=== PATIENT | female | born 1960 | race Hispanic/Latino ===

== ENCOUNTER 2019-06-29 12:52 | Emergency (ER) | payer MEDICARE ==
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
[2019-06-29] MEDS ORDERED: HALOPERIDOL LACTATE 5 MG/1 ML INJ IM ONE (13:13)
[2019-06-29 14:02] LABS: Basophils # (Auto) 0.1 K/mm3 (0.0-0.1); Basophils % (Auto) 1.1 % (0.0-1.8); Eosinophils # (Auto) 0.1 K/mm3 (0.0-0.4); Eosinophils % (Auto) 1.3 % (0.0-4.3); Hematocrit 43.7 % (30.3-42.9); Hemoglobin 14.4 gm/dl (10.1-14.3); Lymphocytes # (Auto) 1.8 K/mm3 (1.2-5.4); Lymphocytes % (Auto) 22.9 % (13.4-35.0); Mean Corpuscular HGB Conc 33 % (30-34); Mean Corpuscular Volume 92 fl (79-97); Monocytes # (Auto) 0.4 K/mm3 (0.0-0.8); Monocytes % (Auto) 5.5 % (0.0-7.3); Platelet Count 241 K/mm3 (140-440); Red Blood Count 4.76 M/mm3 (3.65-5.03); Red Cell Distribution Width 13.3 % (13.2-15.2)
[2019-06-29 14:15] LABS: Alanine Aminotransferase 20 units/L (7-56); Albumin 4.3 g/dL (3.9-5); BUN/Creatinine Ratio 26; Blood Urea Nitrogen 13 mg/dL (7-17); Calcium 9.2 mg/dL (8.4-10.2); Hemolysis Index 32
[2019-06-29 16:29] LABS: Amphetamine Screen,Urine PRESUMPTIVE NEGATIVE; Benzodiazepines Screen,Urine PRESUMPTIVE NEGATIVE; Cannabinoid Screen,Urine PRESUMPTIVE NEGATIVE; Cocaine Screen,Urine PRESUMPTIVE NEGATIVE; Methadone Screen,Urine PRESUMPTIVE NEGATIVE; Opiate Screen,Urine PRESUMPTIVE NEGATIVE
[2019-06-29 18:03] LABS: Bilirubin,Urine NEG (Negative); Blood,Urine NEG (Negative); Calcium Oxalate Crystals,Urine 3+; Color,Urine Yellow (Yellow); Mucus,Urine 2+ /HPF; Protein,Urine <15 mg/dL mg/dL (Negative); Urobilinogen,Urine < 2.0 mg/dL (<2.0)
--- NOTE | 2019-06-30 03:46 | Event Note ---
Nurses alerted be to the patient complaining of dysuria. Patient's urinalysis was reviewed and shows that she does have probable UTI. Patient was started on Macrobid.
[2019-06-30] MEDS: NITROFURANTOIN MONOHYD/M-CRYST 100 MG CAP PO SCH ×2 (04:45→11:52)
--- NOTE | 2019-06-30 11:16 | Consultation ---
History of Present Illness - Reason for Consult Consult date: 06/30/19 Reason for consult: Mental Health Evaluation Requesting physician: GIULIANA MORALES - Chief Complaint Chief complaint: "I'm here for constipation" - History of Present Psychiatric Illness 59 y.o. white female who presented to the ER for acute psychosis. Today the patient was hyper verbal during the assessment. She stated that she came to the ER for constipation, but cannot explain logically how she became a 1013 patient when asked. Her answers to all questions were nonsensical. She has delusional thoughts about having a blood disorder. She stated that she have not slept in days, and do not need sleep at this time. She stated that she was recently discharged from a mental health facility. Overall, the patient's insight was poor. She denies SI/HI's and AVH's. Medications and Allergies Allergies Allergy/AdvReac Type Severity Reaction Status Date / Time amoxicillin Allergy Unknown Verified 06/29/19 17:23 azithromycin [From Zithromax] Allergy Unknown Verified 06/29/19 17:23 clonazepam [From Klonopin] Allergy Unknown Verified 06/29/19 17:23 codeine Allergy Unknown Verified 06/29/19 17:23 morphine Allergy Unknown Verified 06/29/19 17:23 Penicillins Allergy Anaphylaxis Verified 06/29/19 17:23 risperidone [From Risperdal] Allergy Unknown Verified 06/29/19 17:23 Active Meds: Active Medications Nitrofurantoin Macrocrystals (Macrobid) 100 mg PO BID [facility] Last Admin: 06/30/19 04:45 Dose: 100 mg Documented by: Past psychiatric history - Past Medical History Past Medical History: other (Unable to obtain ) Past Surgical History: Other (Unable to obtain ) - past Psychiatric treatment and history psychiatric treatment history: Inpatient psy settings in the past. Denies a fam psy hx. - Social History Social history: other (Reside at a prison) Mental Status Exam - Vital signs Last Vital Signs Temp 97.8 F 06/30/19 01:05 Pulse 74 06/30/19 01:05 Resp 16 06/30/19 01:05 BP 148/79 06/30/19 01:05 Pulse Ox 98 06/30/19 01:05 - Exam Narrative exam: MSE: Appearance: calm Behavior: regular eye contact Speech: hyper verbal Mood:: euphoric Affect: congruent to mood Thought Process: loose associations, tangential Thought Content: denies SI/HI's and AVH's, delusional Motor Activity: ambulatory Cognition: A/O x3 Insight: poor Judgment: poor Results Result Diagrams: 06/29/19 13:18 06/29/19 13:18 Abnormal lab results 06/29/19 06/29/19 06/29/19 Range/Units 13:18 13:18 13:18 Hgb 14.4 H (10.1-14.3) gm/dl Hct 43.7 H (30.3-42.9) % Carbon Dioxide 21 L (22-30) mmol/L Creatinine 0.5 L (0.7-1.2) mg/dL Glucose 141 H (65-100) mg/dL Urine WBC (Auto) (0.0-6.0) /HPF U Epithel Cells (Auto) (0-13.0) /HPF Salicylates < 0.3 L (2.8-20.0) mg/dL Acetaminophen (10.0-30.0) ug/mL 06/29/19 06/29/19 Range/Units 13:18 Unknown Hgb (10.1-14.3) gm/dl Hct (30.3-42.9) % Carbon Dioxide (22-30) mmol/L Creatinine (0.7-1.2) mg/dL Glucose (65-100) mg/dL Urine WBC (Auto) 14.0 H (0.0-6.0) /HPF U Epithel Cells (Auto) 18.0 H (0-13.0) /HPF Salicylates (2.8-20.0) mg/dL Acetaminophen < 5.0 L (10.0-30.0) ug/mL All other labs normal. Assessment and Plan Assessment and plan: Impression: Unspecified Mood DO with psy features. The patient is manic. Today the patient was hyper verbal during the assessment. DDx: Bipolar DO with psychosis, Schizophrenia Recommendation/Plan: Continue 1013 and start Zyprexa 5 mg PO HS for mood/p sychosis and Depakote 500 mg PO BID for mood. Attempted to discuss possible metabolic side effects from Zyprexa with the patient. Baseline A1c/Lipid Panel ordered for the AM. Dispo: The patient was referred to inpatient psy services. Will staff with Dr Maria Alejandra Cespedes.
[2019-06-30 16:51] VITALS: BP 136/68
[2019-06-30] MEDS ORDERED: DIVALPROEX ER 500 MG TAB PO SCH (22:00)
== END 2019-06-30 16:51 | disposition home or self-care (01) ==
LOC: EEVIPCON 12:52 → ED 12:52
DX: F23 Brief psychotic disorder (principal); F17.200 Nicotine dependence, unspecified, uncomplicated; Z88.1 Allergy status to other antibiotic agents; Z88.5 Allergy status to narcotic agent; Z88.0 Allergy status to penicillin; Z88.8 Allergy status to other drugs, medicaments and biological substances
CPT/HCPCS: 36415; 80053; 80164; 80307; 81001; 82150; 82962; 83690; 84443; 84703; 85025; 87086; 96372; 99284; J1630; 80320; G0480

== ENCOUNTER 2019-06-30 12:53 | Inpatient (IN) | payer MEDICARE ==
[2019-06-30 19:28] LABS: Chol/HDL Ratio 5.3 %
[2019-06-30] MEDS: LORazepam 0.5 MG TAB PO SCH (22:04)
[2019-06-30] MEDS: carBAMazepine 100 MG TAB CHEW PO SCH (22:04)
[2019-07-01] MEDS: LEVOTHYROXINE 100 MCG TAB PO SCH (05:04)
[2019-07-01] MEDS: carBAMazepine 100 MG TAB CHEW PO SCH ×3 (07:42→21:13)
--- NOTE | 2019-07-01 08:32 | History and Physical Report ---
GP History & Physical - History of Present Illness Date of admission: 06/30/19 Date of Examination: 07/01/19 Reason for Admission: Failure of Outpatient Treatment, Psychopathology interference, Unable to care for self Chief Complaint: I called 911 because my bowel was turning green History of Present Illness: The patient is a 59 y.o. disabled female with history of PTSD, Bipolar disorder and multiple medical problems including DM, HTN and hypothyroidism. She presented to our ER manic, psychotic, confused, disorganized and delusional. Per ER documentation, the patient was hyper verbal during the assessment. She stated that she came to the ER for constipation, but cannot explain logically how she became a 1013 patient when asked. Her answers to all questions were nonsensical. She has delusional thoughts about having a blood disorder. She stated that she have not slept in days, and do not need sleep at this time. She stated that she was recently discharged from a mental health facility. Overall, the patient's insight was poor. She denies SI/HI's and AVH's. In my interview with the patient, this morning, she states that she called 911 because her bowel was turning green and her thyroid was swelling up. She denies hallucinations but endorses feeling paranoid. She reports that people are spying on her, following her and plotting to harm her. She denies SI/HI. Legal Status: Voluntary Patient Problems: Current Active Problems PTSD (post-traumatic stress disorder) (Acute) Schizoaffective disorder, bipolar type (Acute) Reaction to Hospitalization: Accepting Medications and Allergies Allergies Allergy/AdvReac Type Severity Reaction Status Date / Time amoxicillin Allergy Unknown Verified 06/29/19 17:23 azithromycin [From Zithromax] Allergy Unknown Verified 06/29/19 17:23 clonazepam [From Klonopin] Allergy Unknown Verified 06/29/19 17:23 codeine Allergy Unknown Verified 06/29/19 17:23 morphine Allergy Unknown Verified 06/29/19 17:23 Penicillins Allergy Anaphylaxis Verified 06/29/19 17:23 risperidone [From Risperdal] Allergy Unknown Verified 06/29/19 17:23 Home Medications Medication Instructions Recorded Confirmed Last Taken Type Levothyroxine [Synthroid] 100 mcg PO QAM 06/30/19 06/30/19 Unknown History Metoprolol Mauro/Hydrochlorothiaz 1 each PO DAILY 06/30/19 07/01/19 Unknown History [Metoprolol ER-Hctz 25-12.5 mg] Insulin Aspart [NovoLOG Flexpen] See Protocol SUB-Q ACHS 07/01/19 07/01/19 Unknown History LORazepam [Ativan] 0.5 mg PO BID 07/01/19 07/01/19 Unknown History Potassium Chloride [K-Dur] 20 meq PO QDAY 07/01/19 07/01/19 Unknown History carBAMazepine [Carbamazepine] 100 mg PO TID 07/01/19 07/01/19 Unknown History Active Meds: Active Medications Carbamazepine (Tegretol) 100 mg PO TID [facility] Last Admin: 07/01/19 07:42 Dose: 100 mg Documented by: Levothyroxine Sodium (Synthroid) 100 mcg PO DAILY@0600 [facility] Last Admin: 07/01/19 05:04 Dose: 100 mcg Documented by: Lorazepam (Ativan) 0.5 mg PO QHS [facility] Last Admin: 06/30/19 22:04 Dose: 0.5 mg Documented by: Substance History - Substance History Drug Use: none Hx Tobacco Use: Yes Alcohol Use: No Past psychiatric history - Past Medical History Past Medical History: diabetes, hypertension, hypothyroidism - past Psychiatric treatment and history Psych: Bipolar psychiatric treatment history: She reports multiple inpatient psych treatments No history of suicide attempt She follows up with Dr. Jauregui in out-patient. In the past she found Seroquel beneficial - Social History Social history: (disabled, lives in a Transitional accommodation, has Master's degree, no legal problem and no access to guns) Review of Systems All systems: negative Psychiatric: paranoia Results - Results Labs/Vitals: Laboratory Last Values Hemoglobin A1c 6.9 % (4-6) H 06/30/19 19:00 Triglycerides 276 mg/dL (2-149) H 06/30/19 19:00 Cholesterol 228 mg/dL (50-199) H 06/30/19 19:00 LDL Cholesterol Direct 170 mg/dL (50-130) H 06/30/19 19:00 HDL Cholesterol 43 mg/dL (40-59) 06/30/19 19:00 Cholesterol/HDL Ratio 5.30 % 06/30/19 19:00 Last Vital Signs Temp 98.4 F 06/30/19 22:00 Pulse 75 06/30/19 22:00 Resp 20 06/30/19 22:00 BP 142/70 06/30/19 22:00 Pulse Ox 94 06/30/19 22:00 Physical Examination - Constitutional Vitals: Vital Signs Temp Pulse Resp BP Pulse Ox 98.4 F 75 20 142/70 94 06/30/19 22:00 06/30/19 22:00 06/30/19 22:00 06/30/19 22:00 06/30/19 22:00 Temperature -Last 24 Hours Temperature 98.4 F General appearance: Present: no acute distress, well-nourished - EENT Eyes: Present: PERRL, EOM intact ENT: hearing intact, clear oral mucosa - Neck Neck: Present: supple, normal ROM - Respiratory Respiratory effort: normal Mental Status Exam - Vital signs Last Vital Signs Temp 98.4 F 06/30/19 22:00 Pulse 75 06/30/19 22:00 Resp 20 06/30/19 22:00 BP 142/70 06/30/19 22:00 Pulse Ox 94 06/30/19 22:00 - Exam Orientation: time, place, person Affect: anxious Mood: anxious Thought content: delusions, paranoia Thought Process: Disorganized Perceptions: none Speech: normal rate and pattern Concentration: distractible Motor activity: normal Level of consciousness: alert Memory: Intact Interaction: cooperative Assessment and Plan - Psychiatric problem (1) Schizoaffective disorder, bipolar type Current Visit: Yes Status: Acute plan to address problem: Patient will be admitted for inpatient psychiatric evaluation, medication adjustment and close monitoring The patient's behavior, mood, sleep and appetite will be closely monitored. Patient will be enrolled in individual and group therapeutic sessions and encouraged to attend. Patient will be provided with a safe and structured environment. Patient's physical health needs will be addressed by the Hospitalist. Social Assessment will be completed and the Acoustical Engineer will work with p atient and family to ensure a suitable and safe disposition Medication adjustment will be made as clinically indicated The patient agreed on the treatment plan, understood the risk, benefit, alterna tive treatment, potential consequence of no treatment, and gave informed consent. (2) PTSD (post-traumatic stress disorder) Current Visit: Yes Status: Acute Physician Certification - Certification Statement Physician Certification Statement: This is an acknowledgement statement that NOAH TRAN is a 59 year old F who requires inpatient psychiatric admission for treatment which could reasonably be expected to improve the patient's condition for Schizoaffective disorder Estimated period of time patient will need to remain in the hospital: Out - patient care Plan for post-hospital care: 7 days
[2019-07-01] MEDS: QUEtiapine 200 MG TAB PO SCH ×2 (09:53→21:14)
[2019-07-01] MEDS: NICOTINE 21 MG/24 HR PATCH TD SCH (11:15)
--- NOTE | 2019-07-01 12:52 | Consultation ---
History of Present Illness - Reason for Consult Consult date: 07/01/19 Diabetes, hypertension, hyperlipidemia Requesting physician: ASTER MURDOCK - History of Present Illness Patient is 59 yo admitted to Geripsych unit for schizoaffective disorder, bipolar, PTSD. The hospitalist service has been consulted to manage comorbidities including hypertension, diabetes, hyperlipidemia,hypothyroidism. She takes Insulin for diabetes and has been compliant. She denies any chest pain or shortness of breath. Past History Past Medical History: diabetes, hypertension, hypothyroidism Past Surgical History: , Other (Right knee surgery) Social history: (disabled, lives in a Transitional accommodation, has Master's degree, no legal problem and no access to guns) Family history: other (Unknown) Medications and Allergies Allergies Allergy/AdvReac Type Severity Reaction Status Date / Time amoxicillin Allergy Unknown Verified 06/29/19 17:23 azithromycin [From Zithromax] Allergy Unknown Verified 06/29/19 17:23 clonazepam [From Klonopin] Allergy Unknown Verified 06/29/19 17:23 codeine Allergy Unknown Verified 06/29/19 17:23 morphine Allergy Unknown Verified 06/29/19 17:23 Penicillins Allergy Anaphylaxis Verified 06/29/19 17:23 risperidone [From Risperdal] Allergy Unknown Verified 06/29/19 17:23 Home Medications Medication Instructions Recorded Confirmed Last Taken Type Levothyroxine [Synthroid] 100 mcg PO QAM 06/30/19 06/30/19 Unknown History Metoprolol Mauro/Hydrochlorothiaz 1 each PO DAILY 06/30/19 07/01/19 Unknown History [Metoprolol ER-Hctz 25-12.5 mg] Insulin Aspart (Nf) [NovoLOG See Protocol SUB-Q ACHS 07/01/19 07/01/19 Unknown History Flexpen] LORazepam [Ativan] 0.5 mg PO BID 07/01/19 07/01/19 Unknown History Potassium Chloride [K-Dur] 20 meq PO QDAY 07/01/19 07/01/19 Unknown History carBAMazepine [Carbamazepine] 100 mg PO TID 07/01/19 07/01/19 Unknown History Active Meds: Active Medications Atorvastatin Calcium (Lipitor) 40 mg PO QHS [facility] Carbamazepine (Tegretol) 200 mg PO TID [facility] Levothyroxine Sodium (Synthroid) 100 mcg PO DAILY@0600 [facility] Last Admin: 07/01/19 05:04 Dose: 100 mcg Documented by: Lorazepam (Ativan) 0.5 mg PO QHS [facility] Last Admin: 06/30/19 22:04 Dose: 0.5 mg Documented by: Nicotine (Habitrol) 21 mg TD QDAY [facility] Last Admin: 07/01/19 11:15 Dose: 21 mg Documented by: Quetiapine Fumarate (Seroquel) 200 mg PO BID [facility] Last Admin: 07/01/19 09:53 Dose: 200 mg Documented by: Review of Systems All systems: negative (No fever, no headache, no chest pain.All other systems reviewed and are negative.) Exam - Physical Exam Narrative exam: Gen: Not in acute distress, sitting up in chair, Obese HEENT: Normocephalic, atraumatic Neck: supple, no JVD Heart: S1 and S2 reg, no murmurs, rubs or gallop Lungs: Clear to auscultation, no rhonchi, no wheeze Abd: soft, non tender, normal bowel sounds, non distended, Ext: No edema, no clubbing, no cyanosis Neuro: Awake, alert, oriented X 3, no focal neurological signs - Constitutional Vitals: Temp Pulse Resp BP Pulse Ox 98.4 F 75 20 142/70 94 06/30/19 22:00 06/30/19 22:00 06/30/19 22:00 06/30/19 22:00 06/30/19 22:00 Results - Labs Labs: Abnormal lab results 06/30/19 06/30/19 07/01/19 Range/Units 19:00 19:00 12:42 POC Glucose 125 H (70-105) Hemoglobin A1c 6.9 H (4-6) % Triglycerides 276 H (2-149) mg/dL Cholesterol 228 H (50-199) mg/dL LDL Cholesterol Direct 170 H (50-130) mg/dL Assessment and Plan Schizoaffective disorder, bipolar Admitted to [facility] Psych attending PTSD Psych following Diabetes mellitus type 2 Accucheck q ac hs sliding scale only since A1C 6.9 Hypertension Monitor BP Resume home meds Hyperlipidemia New diagnosis Start statin Hypothyroidism Resume meds check TSH, FT4 Full code status Thanks Dr. Murdock for consulting us. Will follow peripherally.
[2019-07-01] MEDS ORDERED: HYDROCHLOROTHIAZ PO SCH (15:15)
[2019-07-01] MEDS ORDERED: METOPROLOL SU PO SCH (15:15)
[2019-07-01] MEDS ORDERED: [UNRECOGNIZED DRUG - OTHER] PO SCH (15:15)
[2019-07-01] MEDS: METOPROLOL SUCCINATE XL 25 MG TAB PO SCH (16:18)
[2019-07-01] MEDS: hydroCHLOROthiazide 12.5 MG CAP PO SCH (16:18)
[2019-07-01] MEDS ORDERED: DEXTROSE 50% IN WATER (25GM) 50 ML SYRINGE IV PRN (16:29)
[2019-07-01] MEDS: INSULIN LISPRO 100 UNIT/ML SUB-Q SCH ×2 (16:51→22:29)
[2019-07-01] MEDS: LORazepam 0.5 MG TAB PO SCH (21:14)
[2019-07-02] MEDS: LEVOTHYROXINE 100 MCG TAB PO SCH (07:41)
[2019-07-02] MEDS: carBAMazepine 100 MG TAB CHEW PO SCH ×3 (07:42→20:53)
[2019-07-02] MEDS: INSULIN LISPRO 100 UNIT/ML SUB-Q SCH ×2 (09:52→21:46)
[2019-07-02] MEDS: NICOTINE 21 MG/24 HR PATCH TD SCH (09:53)
[2019-07-02] MEDS: hydroCHLOROthiazide 12.5 MG CAP PO SCH (09:54)
[2019-07-02] MEDS: METOPROLOL SUCCINATE XL 25 MG TAB PO SCH (09:55)
[2019-07-02] MEDS: QUEtiapine 200 MG TAB PO SCH ×2 (09:56→21:01)
--- NOTE | 2019-07-02 11:38 | Progress Note ---
Subjective Date of service: 07/02/19 Principal diagnosis: Schizoaffective disorder, PTSD Subjective Comment: Patient continues to be delusional, disorganized, very anxious and not compliant with her treatment. She denies SI/HI/AVH. MSE Orientation: time, place, person Affect: anxious Mood: anxious Thought content: delusions, paranoia Thought Process: Disorganized Perceptions: none Speech: normal rate and pattern Concentration: distractible Motor activity: normal Level of consciousness: alert Memory: Intact Interaction: cooperative Objective - Criteria for Continued Treatment Criteria for Continued Treatment: Improving Level of Functioning, Stablizing Level of Functioning, Improving Emotional/Socia - Mental Status Mental Status: Alert - Objective Observation Participation Level: Full Assessment and Plan - Patient Problems (1) Schizoaffective disorder, bipolar type Current Visit: Yes Status: Acute Plan to address problem: Patient will be admitted for inpatient psychiatric evaluation, medication adjustment and close monitoring The patient's behavior, mood, sleep and appetite will be closely monitored. Patient will be enrolled in individual and group therapeutic sessions and encouraged to attend. Patient will be provided with a safe and structured environment. Patient's physical health needs will be addressed by the Hospitalist. Social Assessment will be completed and the Certifed Refrigeration Operator will work with patient and family to ensure a suitable and safe disposition Medication adjustment will be made as clinically indicated The patient agreed on the treatment plan, understood the risk, benefit, alternative treatment, potential consequence of no treatment, and gave informed consent. (2) PTSD (post-traumatic stress disorder) Current Visit: Yes Status: Acute Plan to address problem: As above Medications and Allergies Allergies Allergy/AdvReac Type Severity Reaction Status Date / Time amoxicillin Allergy Unknown Verified 06/29/19 17:23 azithromycin [From Zithromax] Allergy Unknown Verified 06/29/19 17:23 clonazepam [From Klonopin] Allergy Unknown Verified 06/29/19 17:23 codeine Allergy Unknown Verified 06/29/19 17:23 morphine Allergy Unknown Verified 06/29/19 17:23 Penicillins Allergy Anaphylaxis Verified 06/29/19 17:23 risperidone [From Risperdal] Allergy Unknown Verified 06/29/19 17:23 Home Medications Medication Instructions Recorded Confirmed Last Taken Type Levothyroxine [Synthroid] 100 mcg PO QAM 06/30/19 06/30/19 Unknown History Metoprolol Mauro/Hydrochlorothiaz 1 each PO DAILY 06/30/19 07/01/19 Unknown History [Metoprolol ER-Hctz 25-12.5 mg] Insulin Aspart (Nf) [NovoLOG See Protocol SUB-Q [facility] 07/01/19 07/01/19 Unknown History Flexpen] LORazepam [Ativan] 0.5 mg PO BID 07/01/19 07/01/19 Unknown History Potassium Chloride [K-Dur] 20 meq PO QDAY 07/01/19 07/01/19 Unknown History carBAMazepine [Carbamazepine] 100 mg PO TID 07/01/19 07/01/19 Unknown History Active Meds: Active Medications Atorvastatin Calcium (Lipitor) 40 mg PO QHS [facility] Last Admin: 07/01/19 21:14 Dose: 40 mg Documented by: Carbamazepine (Tegretol) 200 mg PO TID [facility] Last Admin: 07/02/19 07:42 Dose: 100 mg Documented by: Dextrose (D50w (25gm) Syringe) 50 ml IV Q30MIN PRN; Protocol PRN Reason: Hypoglycemia Hydrochlorothiazide (Hctz) 12.5 mg PO QDAY [facility] Last Admin: 07/02/19 09:54 Dose: 12.5 mg Documented by: Insulin Human Lispro (Humalog) 0 unit SUB-Q [facility]; Protocol Last Admin: 07/02/19 09:52 Dose: 1 unit Documented by: Insulin Human [facility] ([facility]) [facility]; Protocol Last Admin: 07/01/19 22:29 Dose: 2 unit Documented by: Levothyroxine Sodium (Synthroid) 100 mcg PO DAILY@0600 [facility] Last Admin: 07/02/19 07:41 Dose: 100 mcg Documented by: Lorazepam (Ativan) 0.5 mg PO QHS [facility] Last Admin: 07/01/19 21:14 Dose: 0.5 mg Documented by: Metoprolol Succinate (Metoprolol Xl) 25 mg PO QDAY [facility] Last Admin: 07/02/19 09:55 Dose: 25 mg Documented by: Nicotine (Habitrol) 21 mg TD QDAY [facility] Last Admin: 07/02/19 09:53 Dose: 21 mg Documented by: Quetiapine Fumarate (Seroquel) 200 mg PO BID [facility] Last Admin: 07/02/19 09:56 Dose: Not Given Documented by: Results - Results Labs/Vitals: Laboratory Last Values POC Glucose 164 (70-105) H 11/08/19 16:31 Hemoglobin A1c 6.9 % (4-6) H 06/30/19 19:00 Triglycerides 276 mg/dL (2-149) H 06/30/19 19:00 Cholesterol 228 mg/dL (50-199) H 06/30/19 19:00 LDL Cholesterol Direct 170 mg/dL (50-130) H 06/30/19 19:00 HDL Cholesterol 43 mg/dL (40-59) 06/30/19 19:00 Cholesterol/HDL Ratio 5.30 % 06/30/19 19:00 Last Vital Signs Temp 97.5 F L 07/02/19 09:00 Pulse 88 07/02/19 09:55 Resp 16 07/02/19 09:00 BP 158/88 07/02/19 09:55 Pulse Ox 95 07/02/19 09:00
[2019-07-02] MEDS: LORazepam 0.5 MG TAB PO SCH (21:00)
[2019-07-03] MEDS: LEVOTHYROXINE 100 MCG TAB PO SCH (06:24)
--- NOTE | 2019-07-03 08:00 | Progress Note ---
Subjective Date of service: 07/03/19 Principal diagnosis: Schizoaffective disorder, PTSD Subjective Comment: Patient continues to be delusional, disorganized, very anxious and not compliant with her treatment. She denies SI/HI/AVH. Nursing Report: Pt. delusional, talking about how late Hugo celeste was her uncle, the is her aunt and how she is related to queen Jeremiah. Pt. is easily irritable and likes to fabricate stories. MSE Orientation: time, place, person Affect: anxious Mood: anxious Thought content: delusions, paranoia Thought Process: Disorganized Perceptions: none Speech: normal rate and pattern Concentration: distractible Motor activity: normal Level of consciousness: alert Memory: Intact Interaction: cooperative Objective - Criteria for Continued Treatment Criteria for Continued Treatment: Improving Level of Functioning - Mental Status Mental Status: Alert - Objective Observation Participation Level: Full Assessment and Plan - Patient Problems (1) Schizoaffective disorder, bipolar type Current Visit: Yes Status: Acute Plan to address problem: Patient will be admitted for inpatient psychiatric evaluation, medication adjustment and close monitoring The patient's behavior, mood, sleep and appetite will be closely monitored. Patient will be enrolled in individual and group therapeutic sessions and encouraged to attend. Patient will be provided with a safe and structured environment. Patient's physical health needs will be addressed by the Hospitalist. Social Assessment will be completed and the Telephone Operator will work with patient and family to ensure a suitable and safe disposition Medication adjustment will be made as clinically indicated The patient agreed on the treatment plan, understood the risk, benefit, alternative treatment, potential consequence of no treatment, and gave informed consent. (2) PTSD (post-traumatic stress disorder) Current Visit: Yes Status: Acute Plan to address problem: As above Medications and Allergies Allergies Allergy/AdvReac Type Severity Reaction Status Date / Time amoxicillin Allergy Unknown Verified 06/29/19 17:23 azithromycin [From Zithromax] Allergy Unknown Verified 06/29/19 17:23 clonazepam [From Klonopin] Allergy Unknown Verified 06/29/19 17:23 codeine Allergy Unknown Verified 06/29/19 17:23 morphine Allergy Unknown Verified 06/29/19 17:23 Penicillins Allergy Anaphylaxis Verified 06/29/19 17:23 risperidone [From Risperdal] Allergy Unknown Verified 06/29/19 17:23 Home Medications Medication Instructions Recorded Confirmed Last Taken Type Levothyroxine [Synthroid] 100 mcg PO QAM 06/30/19 06/30/19 Unknown History Metoprolol Mauro/Hydrochlorothiaz 1 each PO DAILY 06/30/19 07/01/19 Unknown History [Metoprolol ER-Hctz 25-12.5 mg] Insulin Aspart (Nf) [NovoLOG See Protocol SUB-Q ACHS 07/01/19 07/01/19 Unknown History Flexpen] LORazepam [Ativan] 0.5 mg PO BID 07/01/19 07/01/19 Unknown History Potassium Chloride [K-Dur] 20 meq PO QDAY 07/01/19 07/01/19 Unknown History carBAMazepine [Carbamazepine] 100 mg PO TID 07/01/19 07/01/19 Unknown History Active Meds: Active Medications Atorvastatin Calcium (Lipitor) 40 mg PO QHS [facility] Last Admin: 07/02/19 21:00 Dose: 40 mg Documented by: Carbamazepine (Tegretol) 200 mg PO TID [facility] Last Admin: 07/02/19 20:53 Dose: 100 mg Documented by: Dextrose (D50w (25gm) Syringe) 50 ml IV Q30MIN PRN; Protocol PRN Reason: Hypoglycemia Hydrochlorothiazide (Hctz) 12.5 mg PO QDAY [facility] Last Admin: 07/02/19 09:54 Dose: 12.5 mg Documented by: Insulin Human Lispro (Humalog) 0 unit SUB-Q [facility]; Protocol Last Admin: 07/02/19 09:52 Dose: 1 unit Documented by: Insulin Human Lispro (Humalog) 0 unit [facility]Q [facility]; Protocol Last Admin: 07/02/19 21:46 Dose: 2 unit Documented by: Levothyroxine Sodium (Synthroid) 100 mcg PO DAILY@0600 [facility] Last Admin: 07/03/19 06:24 Dose: 100 mcg Documented by: Lorazepam (Ativan) 0.5 mg PO QHS [facility] Last Admin: 07/02/19 21:00 Dose: 0.5 mg Documented by: Metoprolol Succinate (Metoprolol Xl) 25 mg PO QDAY [facility] Last Admin: 07/02/19 09:55 Dose: 25 mg Documented by: Nicotine (Habitrol) 21 mg TD QDAY [facility] Last Admin: 07/02/19 09:53 Dose: 21 mg Documented by: Quetiapine Fumarate (Seroquel) 200 mg PO BID [facility] Last Admin: 07/02/19 21:01 Dose: Not Given Documented by: Results - Results Labs/Vitals: Laboratory Last Values POC Glucose 164 (70-105) H 07/01/19 16:31 Hemoglobin A1c 6.9 % (4-6) H 06/30/19 19:00 Triglycerides 276 mg/dL (2-149) H 06/30/19 19:00 Cholesterol 228 mg/dL (50-199) H 06/30/19 19:00 LDL Cholesterol Direct 170 mg/dL (50-130) H 06/30/19 19:00 HDL Cholesterol 43 mg/dL (40-59) 06/30/19 19:00 Cholesterol/HDL Ratio 5.30 % 06/30/19 19:00 Last Vital Signs Temp 98.5 F 07/02/19 20:17 Pulse 78 07/02/19 20:17 Resp 18 07/02/19 20:17 BP 182/89 07/02/19 20:17 Pulse Ox 97 07/02/19 20:17
[2019-07-03] MEDS: NICOTINE 21 MG/24 HR PATCH TD SCH (10:12)
[2019-07-03] MEDS: hydroCHLOROthiazide 12.5 MG CAP PO SCH (10:12)
[2019-07-03] MEDS: carBAMazepine 100 MG TAB CHEW PO SCH ×3 (10:12→21:15)
[2019-07-03] MEDS: QUEtiapine 200 MG TAB PO SCH ×2 (10:12→21:13)
[2019-07-03] MEDS: METOPROLOL SUCCINATE XL 25 MG TAB PO SCH (10:16)
[2019-07-03] MEDS: INSULIN LISPRO 100 UNIT/ML SUB-Q SCH ×2 (10:16→22:22)
[2019-07-03] MEDS: LORazepam 0.5 MG TAB PO SCH (21:15)
--- NOTE | 2019-07-04 07:15 | Progress Note ---
Subjective Date of service: 07/04/19 Principal diagnosis: Schizoaffective disorder, PTSD Subjective Comment: Pt presents in a good mood, pt states that she is sleeping well, eating well, denies voices, denies paranoia, denies SI/HI/AVH. Pt states that she don't understand how she came from a medical unit to a psych unit. Pt states that she went to the ER cause she was concerned with having a UTI and her bowels were green so the senior care was informed to call 911. Pt states that she has mult iple gastric problems along with GI surgeries and is at a high risk for intestinal gangrene, which she feels is the explanation for her bowels turning green. Pt medical history charts have been reviewed and there is no evidence to support the pt's statement, pt is believed to be delusional. Pt is working with Dr. Jauregui to schedule her appointment and follow up 17 Jul 2019. Nursing Report: Pt slept quietly throughout the night for 8 hours, no complaints regarding pt behavior during the night. MSE Orientation: time, place, person Affect: Normal Mood: Good Thought content: delusions Thought Process: Linear Perceptions: none Speech: normal rate and pattern Concentration: Adequate Motor activity: normal Level of consciousness: alert Memory: Intact Interaction: cooperative Objective - Criteria for Continued Treatment Criteria for Continued Treatment: Stablizing Level of Functioning - Mental Status Mental Status: Oriented x 3 - Objective Observation Participation Level: Full Assessment and Plan - Patient Problems (1) Schizoaffective disorder, bipolar type Current Visit: Yes Status: Acute Plan to address problem: Patient will be admitted for inpatient psychiatric evaluation, medication adjustment and close monitoring The patient's behavior, mood, sleep and appetite will be closely monitored. Patient will be enrolled in individual and group therapeutic sessions and encouraged to attend. Patient will be provided with a safe and structured environment. Patient's physical health needs will be addressed by the Hospitalist. Social Assessment will be completed and the Cardiac Technologist will work with patient and family to ensure a suitable and safe disposition Medication adjustment will be made as clinically indicated The patient agreed on the treatment plan, understood the risk, benefit, alternative treatment, potential consequence of no treatment, and gave informed consent. (2) PTSD (post-traumatic stress disorder) Current Visit: Yes Status: Acute Medications and Allergies Allergies Allergy/AdvReac Type Severity Reaction Status Date / Time amoxicillin Allergy Unknown Verified 06/29/19 17:23 azithromycin [From Zithromax] Allergy Unknown Verified 06/29/19 17:23 clonazepam [From Klonopin] Allergy Unknown Verified 06/29/19 17:23 codeine Allergy Unknown Verified 06/29/19 17:23 morphine Allergy Unknown Verified 06/29/19 17:23 Penicillins Allergy Anaphylaxis Verified 06/29/19 17:23 risperidone [From Risperdal] Allergy Unknown Verified 06/29/19 17:23 Home Medications Medication Instructions Recorded Confirmed Last Taken Type Levothyroxine [Synthroid] 100 mcg PO QAM 06/30/19 06/30/19 Unknown History Metoprolol Mauro/Hydrochlorothiaz 1 each PO DAILY 06/30/19 07/01/19 Unknown History [Metoprolol ER-Hctz 25-12.5 mg] Insulin Aspart (Nf) [NovoLOG See Protocol SUB-Q [facility] 07/01/19 07/01/19 Unknown History Flexpen] LORazepam [Ativan] 0.5 mg PO BID 07/01/19 07/01/19 Unknown History Potassium Chloride [K-Dur] 20 meq PO QDAY 07/01/19 07/01/19 Unknown History carBAMazepine [Carbamazepine] 100 mg PO TID 07/01/19 07/01/19 Unknown History Active Meds: Active Medications Atorvastatin Calcium (Lipitor) 40 mg PO QHS [facility] Last Admin: 07/03/19 22:28 Dose: 40 mg Documented by: Carbamazepine (Tegretol) 100 mg PO TID [facility] Last Admin: 07/03/19 21:15 Dose: 100 mg Documented by: Dextrose (D50w (25gm) Syringe) 50 ml IV Q30MIN PRN; Protocol PRN Reason: Hypoglycemia Hydrochlorothiazide (Hctz) 12.5 mg PO QDAY [facility] Last Admin: 07/03/19 10:12 Dose: 12.5 mg Documented by: Insulin Human Lispro (Humalog) [address] [facility]; Protocol Last Admin: 07/03/19 10:16 Dose: Not Given Documented by: [facility]; Protocol Last Admin: 07/03/19 22:22 Dose: Not Given Documented by: Levothyroxine Sodium (Synthroid) 100 mcg PO DAILY@0600 [facility] Last Admin: 07/03/19 06:24 Dose: 100 mcg Documented by: Lorazepam (Ativan) 0.5 mg PO QHS [facility] Last Admin: 07/03/19 21:15 Dose: 0.5 mg Documented by: Metoprolol Succinate (Metoprolol Xl) 25 mg PO QDAY [facility] Last Admin: 07/03/19 10:16 Dose: 25 mg Documented by: Nicotine (Habitrol) 21 mg TD QDAY [facility] Last Admin: 07/03/19 10:12 Dose: 21 mg Documented by: Quetiapine Fumarate (Seroquel) 200 mg PO BID [facility] Last Admin: 07/03/19 21:13 Dose: Not Given Documented by: Results - Results Labs/Vitals: Laboratory Last Values POC Glucose 164 (70-105) H 07/01/19 16:31 Hemoglobin A1c 6.9 % (4-6) H 06/30/19 19:00 Triglycerides 276 mg/dL (2-149) H 06/30/19 19:00 Cholesterol 228 mg/dL (50-199) H 06/30/19 19:00 LDL Cholesterol Direct 170 mg/dL (50-130) H 06/30/19 19:00 HDL Cholesterol 43 mg/dL (40-59) 06/30/19 19:00 Cholesterol/HDL Ratio 5.30 % 06/30/19 19:00 Last Vital Signs Temp 98.5 F 07/03/19 22:00 Pulse 90 07/03/19 22:00 Resp 20 07/03/19 22:00 BP 167/94 07/03/19 22:00 Pulse Ox 95 07/03/19 22:00
[2019-07-04] MEDS: LEVOTHYROXINE 100 MCG TAB PO SCH (07:20)
[2019-07-04] MEDS: INSULIN LISPRO 100 UNIT/ML SUB-Q SCH ×4 (07:56→22:13)
[2019-07-04] MEDS: carBAMazepine 100 MG TAB CHEW PO SCH ×3 (08:04→20:31)
[2019-07-04] MEDS: NICOTINE 21 MG/24 HR PATCH TD SCH (10:08)
[2019-07-04] MEDS: METOPROLOL SUCCINATE XL 25 MG TAB PO SCH (10:08)
[2019-07-04] MEDS: hydroCHLOROthiazide 12.5 MG CAP PO SCH (10:08)
[2019-07-04] MEDS: QUEtiapine 200 MG TAB PO SCH ×2 (10:09→21:20)
[2019-07-04] MEDS: LORazepam 0.5 MG TAB PO SCH (21:15)
[2019-07-05] MEDS: LEVOTHYROXINE 100 MCG TAB PO SCH (05:05)
--- NOTE | 2019-07-05 07:18 | Progress Note ---
Subjective Date of service: 07/05/19 Principal diagnosis: Schizoaffective disorder, PTSD Subjective Comment: Pt presents in a good mood, pt states that she is sleeping well, eating well, denies voices, denies paranoia, denies SI/HI/AVH. Pt states that she don't understand how she came from a medical unit to a psych unit. Pt states that she went to the ER cause she was concerned with having a UTI and her bowels were green so the snf was informed to call 911. Pt states that she has mult iple gastric problems along with GI surgeries and is at a high risk for intestinal gangrene, which she feels is the explanation for her bowels turning green. Pt medical history charts have been reviewed and there is no evidence to support the pt's statement, pt is believed to be delusional. Pt is working with Dr. Jauregui to schedule her appointment and follow up 17 Jul 2019. Nursing notes states, Pt is alert and oriented x4, calm and cooperative, interacts well with peers, pt was selective with her bedtime medication, pt refused seroquel, pt stated that she did not want her heart to stop. denies SI/HI, denies A/V/H, denies pain, good appetite, able to make needs known, no behavioral issues, pt slept through the night, AM medication administered, no distress noted. MSE Orientation: time, place, person Affect: Normal Mood: Good Thought content: delusions Thought Process: Linear Perceptions: none Speech: normal rate and pattern Concentration: Adequate Motor activity: normal Level of consciousness: alert Memory: Intact Interaction: cooperative Assessment and Plan - Patient Problems (1) Schizoaffective disorder, bipolar type Current Visit: Yes Status: Acute (2) PTSD (post-traumatic stress disorder) Current Visit: Yes Status: Acute Medications and Allergies Allergies Allergy/AdvReac Type Severity Reaction Status Date / Time amoxicillin Allergy Unknown Verified 06/29/19 17:23 azithromycin [From Zithromax] Allergy Unknown Verified 06/29/19 17:23 clonazepam [From Klonopin] Allergy Unknown Verified 06/29/19 17:23 codeine Allergy Unknown Verified 06/29/19 17:23 morphine Allergy Unknown Verified 06/29/19 17:23 Penicillins Allergy Anaphylaxis Verified 06/29/19 17:23 risperidone [From Risperdal] Allergy Unknown Verified 06/29/19 17:23 Home Medications Medication Instructions Recorded Confirmed Last Taken Type Levothyroxine [Synthroid] 100 mcg PO QAM 06/30/19 06/30/19 Unknown History Metoprolol Mauro/Hydrochlorothiaz 1 each PO DAILY 06/30/19 07/01/19 Unknown History [Metoprolol ER-Hctz 25-12.5 mg] Insulin Aspart (Nf) [NovoLOG See Protocol SUB-Q [facility] 07/01/19 07/01/19 Unknown History Flexpen] LORazepam [Ativan] 0.5 mg PO BID 07/01/19 07/01/19 Unknown History Potassium Chloride [K-Dur] 20 meq PO QDAY 07/01/19 07/01/19 Unknown History carBAMazepine [Carbamazepine] 100 mg PO TID 07/01/19 07/01/19 Unknown History Active Meds: Active Medications Atorvastatin Calcium (Lipitor) 40 mg PO QHS [facility] Last Admin: 07/04/19 21:15 Dose: 40 mg Documented by: Carbamazepine (Tegretol) 100 mg PO TID [facility] Last Admin: 07/04/19 20:31 Dose: 100 mg Documented by: Dextrose (D50w (25gm) Syringe) 50 ml IV Q30MIN PRN; Protocol PRN Reason: Hypoglycemia Hydrochlorothiazide (Hctz) 12.5 mg PO QDAY [facility] Last Admin: 07/04/19 10:08 Dose: 12.5 mg Documented by: Insulin Human Lispro (Humalog) 0 unit SUB-Q [facility]; Protocol Last Admin: 07/04/19 16:56 Dose: 3 unit Documented by: [facility]; Protocol Last Admin: 07/04/19 22:13 Dose: 2 unit Documented by: Levothyroxine Sodium (Synthroid) 100 mcg PO DAILY@0600 [facility] Last Admin: 07/05/19 05:05 Dose: 100 mcg Documented by: Lorazepam (Ativan) 0.5 mg PO QHS [facility] Last Admin: 07/04/19 21:15 Dose: 0.5 mg Documented by: Metoprolol Succinate (Metoprolol Xl) 25 mg PO QDAY [facility] Last Admin: 07/04/19 10:08 Dose: 25 mg Documented by: Nicotine (Habitrol) 21 mg TD QDAY [facility] Last Admin: 07/04/19 10:08 Dose: 21 mg Documented by: Quetiapine Fumarate (Seroquel) 200 mg PO BID [facility] Last Admin: 07/04/19 21:20 Dose: Not Given Documented by: Results - Results Labs/Vitals: Laboratory Last Values POC Glucose 139 (70-105) H 07/05/19 06:46 Hemoglobin A1c 6.9 % (4-6) H 06/30/19 19:00 Triglycerides 276 mg/dL (2-149) H 06/30/19 19:00 Cholesterol 228 mg/dL (50-199) H 06/30/19 19:00 LDL Cholesterol Direct 170 mg/dL (50-130) H 06/30/19 19:00 HDL Cholesterol 43 mg/dL (40-59) 06/30/19 19:00 Cholesterol/HDL Ratio 5.30 % 06/30/19 19:00 Last Vital Signs Temp 98.2 F 07/04/19 22:00 Pulse 89 07/04/19 22:00 Resp 18 07/04/19 22:00 BP 160/86 07/04/19 22:00 Pulse Ox 96 07/04/19 22:00
[2019-07-05] MEDS: INSULIN LISPRO 100 UNIT/ML SUB-Q SCH ×2 (07:40→11:52)
--- NOTE | 2019-07-05 08:00 | Discharge Summary ---
Providers - Providers Date of Admission: 06/30/19 17:41 Date of discharge: 07/05/19 Attending physician: ASTER MURDOCK MD 06/30/19 13:36 Consult to Physician [CONS] Routine Comment: Consulting Provider: TASNEEM HILLMAN Physician Instructions: Reason For Exam: [facility] Primary care physician: DIRECTOR SURFACE TRANSPORTATION Hospitalization Reason for admission: She presented manic, psychotic, confused, disorganized and delusional. Condition: Good Hospital course: The patient was provided inpatient psychiatric treatment with safe and supportive environment, group therapy, individual counseling, psychiatric medication, medication adjustment, adverse effect monitor, medical evaluation, medical treatment, social service assessment, family/social support meeting, placement assessment and psycho-education. The patients mood, anxiety, thoughts, stress management skill, cognition, impulse/anger control, motivation, understanding of disease, compliance to treatment and appreciation on family/social support are improved and stabilized. At the time of discharge, the patient had no suicidal ideas, no homicidal ideas, no aggressive thoughts, no endangering behavior and no debilitating adverse effects. Disposition: DC-01 TO HOME OR SELFCARE Allergies/Adverse Reactions: Allergies amoxicillin Allergy (Verified 06/29/19 17:23) Unknown azithromycin [From Zithromax] Allergy (Verified 06/29/19 17:23) Unknown clonazepam [From Klonopin] Allergy (Verified 06/29/19 17:23) Unknown codeine Allergy (Verified 06/29/19 17:23) Unknown morphine Allergy (Verified 06/29/19 17:23) Unknown Penicillins Allergy (Verified 06/29/19 17:23) Anaphylaxis risperidone [From Risperdal] Allergy (Verified 06/29/19 17:23) Unknown Vital Signs: Last Vital Signs Temp 98.2 F 07/04/19 22:00 Pulse 89 07/04/19 22:00 Resp 18 07/04/19 22:00 BP 160/86 07/04/19 22:00 Pulse Ox 96 07/04/19 22:00 Last Lab: Laboratory Last Values POC Glucose 139 (70-105) H 07/05/19 06:46 Hemoglobin A1c 6.9 % (4-6) H 06/30/19 19:00 Triglycerides 276 mg/dL (2-149) H 06/30/19 19:00 Cholesterol 228 mg/dL (50-199) H 06/30/19 19:00 LDL Cholesterol Direct 170 mg/dL (50-130) H 06/30/19 19:00 HDL Cholesterol 43 mg/dL (40-59) 06/30/19 19:00 Cholesterol/HDL Ratio 5.30 % 06/30/19 19:00 - Discharge Diagnoses (1) Schizoaffective disorder, bipolar type Status: Acute (2) PTSD (post-traumatic stress disorder) Status: Acute Core Measure Documentation - Palliative Care Palliative Care/ Comfort Measures: Not Applicable - Core Measures Any of the following diagnoses?: none Exam - Constitutional Vitals: Temp Pulse Resp BP Pulse Ox 98.2 F 89 18 160/86 96 07/04/19 22:00 07/04/19 22:00 07/04/19 22:00 07/04/19 22:00 07/04/19 22:00 General appearance: Present: no acute distress, well-nourished - EENT Eyes: Present: PERRL, EOM intact ENT: hearing intact, clear oral mucosa - Neck Neck: Present: supple, normal ROM - Respiratory Respiratory effort: normal Plan Activity: advance as tolerated Weight Bearing Status: Weight Bear as Tolerated Care Plan Goals: Maintain good and stable mental health Plan of Treatment: Take medications as prescribed and attend out-patient clinic regularly Health Concerns: Psychosis Assessment: Schizoaffective disorder Follow up with: PRIMARY MD TIFFANY [Primary Care Provider] - 7 Days
[2019-07-05] MEDS: carBAMazepine 100 MG TAB CHEW PO SCH (08:42)
[2019-07-05 08:59] VITALS: BP 153/89
[2019-07-05] MEDS: NICOTINE 21 MG/24 HR PATCH TD SCH (09:00)
[2019-07-05] MEDS: METOPROLOL SUCCINATE XL 25 MG TAB PO SCH (09:00)
[2019-07-05] MEDS: QUEtiapine 200 MG TAB PO SCH (09:00)
[2019-07-05] MEDS: hydroCHLOROthiazide 12.5 MG CAP PO SCH (09:00)
== END 2019-07-05 14:15 | disposition home or self-care (01) | DRG 885 ==
LOC: 3A 12:53 → UNDOADMIN 12:53 → 5A 17:41
PROVIDERS: ADMIT Psychiatry & Neurology Psychiatry; ATTEND Psychiatry & Neurology Psychiatry
DX: F25.0 Schizoaffective disorder, bipolar type (principal); F43.10 Post-traumatic stress disorder, unspecified; E11.9 Type 2 diabetes mellitus without complications; I10 Essential (primary) hypertension; E03.9 Hypothyroidism, unspecified; E78.5 Hyperlipidemia, unspecified; Z88.1 Allergy status to other antibiotic agents; Z88.5 Allergy status to narcotic agent; Z88.0 Allergy status to penicillin; Z88.8 Allergy status to other drugs, medicaments and biological substances; Z79.899 Other long term (current) drug therapy; Z79.4 Long term (current) use of insulin
CPT/HCPCS: 36415; 80053; 80061; 80164; 80307; 80320; 81001; 82150; 82962; 83036; 83690; 84443; 84703; 85025; 87086; 96372; 99284; G0378; A9270-GY; G0480; J1630; J1815

== ENCOUNTER 2019-09-06 15:44 | Emergency (ER) | payer MEDICARE ==
[2019-09-06 17:40] VITALS: BP 160/81
--- NOTE | 2019-09-06 17:44 | Event Note ---
ED Screening Note ED Screening Note: pt presents for fatigue and medication refill has not taken her insulin, levothyroxine in three weeks This initial assessment/diagnostic orders/clinical plan/treatment(s) is/are subject to change based on patients health status, clinical progression and re- assessment by fellow clinical providers in the ED. Further treatment and workup at subsequent clinical providers discretion. Patient/guardian urged not to elope from the ED as their condition may be serious if not clinically assessed and managed. Initial orders include: labs
[2019-09-06 18:33] LABS: Basophils % (Auto) 0.5 % (0.0-1.8); Eosinophils # (Auto) 0.1 K/mm3 (0.0-0.4); Eosinophils % (Auto) 0.9 % (0.0-4.3); Hematocrit 44.3 % (30.3-42.9); Hemoglobin 15.1 gm/dl (10.1-14.3); Lymphocytes # (Auto) 2.3 K/mm3 (1.2-5.4); Lymphocytes % (Auto) 26.5 % (13.4-35.0); Mean Corpuscular HGB Conc 34 % (30-34); Mean Corpuscular Volume 92 fl (79-97); Monocytes # (Auto) 0.5 K/mm3 (0.0-0.8); Monocytes % (Auto) 5.2 % (0.0-7.3); Platelet Count 246 K/mm3 (140-440); Red Blood Count 4.84 M/mm3 (3.65-5.03); Red Cell Distribution Width 13.2 % (13.2-15.2)
[2019-09-06 18:53] LABS: Alanine Aminotransferase 10 units/L (7-56); Albumin 4.4 g/dL (3.9-5); BUN/Creatinine Ratio 27; Blood Urea Nitrogen 16 mg/dL (7-17); Calcium 9.6 mg/dL (8.4-10.2); Hemolysis Index 63
--- NOTE | 2019-09-06 22:06 | Emergency Department Report ---
ED Medical Clearance HPI - General Chief complaint: Medical Clearance Stated complaint: MEDICATION REFILL Time Seen by Provider: 09/06/19 17:39 Source: patient Mode of arrival: Ambulatory - History of Present Illness Initial comments: 59 year old female presents to the emergency room reporting she has been out of her chronic disease medications for ongoing for weeks. Patient states that her primary care provider has moved back to [facility]. Patient reports that she was in a facility and a discharge no medications. Patient has no other complaints. Reason for Medical Clearance: other (medication refill) Home medications: Home Medications Medication Instructions Recorded Confirmed Last Taken Insulin Aspart (Nf) [NovoLOG See Protocol SUB-Q ACHS 07/01/19 07/01/19 Unknown Flexpen] LORazepam [Ativan] 0.5 mg PO BID 07/01/19 07/01/19 Unknown Previous Rx's Medication Instructions Recorded Last Taken Type Levothyroxine [Synthroid] 100 mcg PO QAM 14 Days #14 tab 09/06/19 Unknown Rx Lispro Insulin [HumaLOG] 10 unit SQ TIDAC 30 Days #1 bottle 09/06/19 Unknown Rx Metoprolol Mauro/Hydrochlorothiaz 1 each PO DAILY 14 Days #14 tab 09/06/19 Unknown Rx [Metoprolol ER-Hctz 25-12.5 mg] Potassium Chloride [K-Dur] 20 meq PO QDAY 14 Days #14 09/06/19 Unknown Rx carBAMazepine [Carbamazepine] 100 mg PO TID 14 Days #42 tab 09/06/19 Unknown Rx Allergies/Adverse reactions: Allergies Allergy/AdvReac Type Severity Reaction Status Date / Time amoxicillin Allergy Unknown Verified 06/29/19 17:23 azithromycin [From Zithromax] Allergy Unknown Verified 06/29/19 17:23 clonazepam [From Klonopin] Allergy Unknown Verified 06/29/19 17:23 codeine Allergy Unknown Verified 06/29/19 17:23 morphine Allergy Unknown Verified 06/29/19 17:23 Penicillins Allergy Anaphylaxis Verified 06/29/19 17:23 risperidone [From Risperdal] Allergy Unknown Verified 06/29/19 17:23 ED Review of Systems ROS: Stated complaint: MEDICATION REFILL Other details as noted in HPI Comment: All other systems reviewed and negative ED Past Medical Hx - Past Medical History Hx Hypertension: Yes (Metoprolol) Hx Congestive Heart Failure: No Hx Diabetes: Yes (Novolog) Hx Renal Disease: No Hx Arthritis: No Hx Seizures: Yes (on tegretol) Hx Psychiatric Treatment: Yes Hx Asthma: No Hx COPD: No Hx Dementia: No Additional medical history: Kareem's Disease - Surgical History Hx Cholecystectomy: No Hx Appendectomy: No Additional Surgical History: 2000, knee - Social History Smoking Status: Current Every Day Smoker Substance Use Type: None - Medications Home Medications: Home Medications Medication Instructions Recorded Confirmed Last Taken Type Insulin Aspart (Nf) [NovoLOG See Protocol SUB-Q ACHS 07/01/19 07/01/19 Unknown History Flexpen] LORazepam [Ativan] 0.5 mg PO BID 07/01/19 07/01/19 Unknown History Levothyroxine [Synthroid] 100 mcg PO QAM 14 Days #14 tab 09/06/19 Unknown Rx Lispro Insulin [HumaLOG] 10 unit SQ TIDAC 30 Days #1 bottle 09/06/19 Unknown Rx Metoprolol Mauro/Hydrochlorothiaz 1 each PO DAILY 14 Days #14 tab 09/06/19 Unknown Rx [Metoprolol ER-Hctz 25-12.5 mg] Potassium Chloride [K-Dur] 20 meq PO QDAY 14 Days #14 09/06/19 Unknown Rx carBAMazepine [Carbamazepine] 100 mg PO TID 14 Days #42 tab 09/06/19 Unknown Rx ED Physical Exam - General Limitations: No Limitations General appearance: alert, in no apparent distress - Head Head exam: Present: atraumatic, normocephalic - Eye Eye exam: Present: normal appearance - ENT ENT exam: Present: mucous membranes moist - Neck Neck exam: Present: normal inspection, full ROM - Extremities Exam Extremities exam: Present: normal inspection - Neurological Exam Neurological exam: Present: alert, oriented X3, normal gait - Psychiatric Psychiatric exam: Present: normal affect, normal mood - Skin Skin exam: Present: warm, dry, intact, normal color. Absent: rash ED Course Vital Signs 09/06/19 15:59 Temperature 98.0 F Pulse Rate 95 H Respiratory 20 Rate Blood Pressure 160/81 O2 Sat by Pulse 96 Oximetry ED Medical Decision Making - Lab Data Result diagrams: 09/06/19 18:01 09/06/19 18:01 - Medical Decision Making 59 year old female presents to the emergency room reporting she has been out of her chronic disease medications for ongoing for weeks. Patient states that her primary care provider has moved back to [facility]. Patient reports that she was in a facility and a discharge no medications. Patient has no other complaints. ED Disposition Clinical Impression: Encounter for medication refill Disposition: DC-01 TO HOME OR SELFCARE Is pt being admited?: No Does the pt Need Aspirin: No Condition: Stable Prescriptions: carBAMazepine [Carbamazepine] 100 mg PO TID 14 Days #42 tab Lispro Insulin [HumaLOG] 10 unit SQ TIDAC 30 Days #1 bottle Potassium Chloride [K-Dur] 20 meq PO QDAY 14 Days #14 Metoprolol Mauro/Hydrochlorothiaz [Metoprolol ER-Hctz 25-12.5 mg] 1 each PO DAILY 14 Days #14 tab Levothyroxine [Synthroid] 100 mcg PO QAM 14 Days #14 tab Referrals: PRIMARY CAREMD [Primary Care Provider] - 3-5 Days JAMAICA WILEY MD [Staff Physician] - 3-5 Days TEA ARBOLEDA JR, MD [Staff Physician] - 3-5 Days
== END 2019-09-06 22:30 | disposition home or self-care (01) ==
LOC: ED 15:44
DX: I10 Essential (primary) hypertension (principal); E11.9 Type 2 diabetes mellitus without complications; F17.200 Nicotine dependence, unspecified, uncomplicated; Z88.0 Allergy status to penicillin; Z88.8 Allergy status to other drugs, medicaments and biological substances; Z88.5 Allergy status to narcotic agent; Z79.899 Other long term (current) drug therapy; Z98.890 Other specified postprocedural states; Z79.4 Long term (current) use of insulin; Z76.0 Encounter for issue of repeat prescription
CPT/HCPCS: 36415; 80053; 82805; 84443; 85025

== ENCOUNTER 2019-09-19 14:31 | Emergency (ER) | payer MEDICARE ==
--- NOTE | 2019-09-19 14:58 | Emergency Department Report ---
Blank Doc - Documentation Documentation: 59-year-old female that presents with medications refill. Patients family mem lizy that brought patient stated she has been delusional and r/o for UTI. Denies any SI/HI. Patient is A/O x3. This initial assessment/diagnostic orders/clinical plan/treatment(s) is/are subject to change based on patient's health status, clinical progression and re- assessment by fellow clinical providers in the ED. Further treatment and workup at subsequent clinical providers discretion. Patient/guardians urged not to elope from the ED as their condition may be serious if not clinically assessed and managed. Initial orders include: 1- Patient sent to MAIN ED for further evaluation and treatment 2- patient needs to be evaluated by psych provider. 3- labs to be done as MDs assessment.
--- NOTE | 2019-09-19 18:56 | Emergency Department Report ---
Chief Complaint: Psych Stated Complaint: MENTAL HEALTH/MEDS Time Seen by Provider: 09/19/19 14:56 - HPI History of Present Illness: Patient is a 59-year-old female who is in a skilled nursing and is or the state who is here for medication refill. Patient states she only has one more pill of her Synthroid. Patient also is almost out of her insulin as well. Patient told the waterproofing supervisor that she needed to get her life support medicines. Patient was sent in for mental health evaluations since the waterproofing supervisor stated these medications do not "life support". Patient stated that she needs his medications otherwise she'll get sick which she is calling them my support medications. Patient is not homicidal suicidal or having any active hallucinations. Patient's last refills were here in our emergency department. - ROS Review of Systems: All other systems are reviewed and are negative - Exam Vital Signs: Vital Signs 09/19/19 14:38 Temperature 98.6 F Pulse Rate 98 H Respiratory 16 Rate Blood Pressure 168/98 O2 Sat by Pulse 96 Oximetry Physical Exam: Patient is alert and oriented 3 in no acute distress. She has normal affect and normal mood. Heart lung exam is within normal limits. Her abdomen is soft nontender. MSE screening note: Focused history and physical exam performed. Due to findings the following was ordered: ED Medical Decision Making - Medical Decision Making Patient does not have a medical emergency at this time. Her medications will be reprinted for her but she will be referred to outpatient resources and her primary care for further management. ED Disposition for MSE Clinical Impression: Encounter for medication refill Disposition: MED SCREENING EXAM-LEFT Is pt being admited?: No Does the pt Need Aspirin: No Condition: Stable Additional Instructions: If you're unable to see your primary care physician for additional refills please follow-up with [facility]. Prescriptions: carBAMazepine [Carbamazepine] 100 mg PO TID 14 Days #42 tab Lispro Insulin [HumaLOG] 10 unit SQ TIDAC 30 Days #1 bottle Potassium Chloride [K-Dur] 20 meq PO QDAY 14 Days #14 Metoprolol Mauro/Hydrochlorothiaz [Metoprolol ER-Hctz 25-12.5 mg] 1 each PO DAILY 14 Days #14 tab Levothyroxine [Synthroid] 100 mcg PO QAM 14 Days #14 tab Referrals: CRISTAL SOSA MD [Referring] - 3-5 Days Time of Disposition: 18:54
[2019-09-19 19:54] VITALS: BP 147/89
== END 2019-09-19 19:58 | disposition left against medical advice (07) ==
LOC: ED 14:31
DX: F22 Delusional disorders (principal); Z76.0 Encounter for issue of repeat prescription; Z88.0 Allergy status to penicillin; Z88.1 Allergy status to other antibiotic agents; Z88.6 Allergy status to analgesic agent
CPT/HCPCS: 99282

== ENCOUNTER 2020-01-04 14:36 | Emergency (ER) | payer MEDICARE ==
--- NOTE | 2020-01-04 16:30 | Emergency Department Report ---
ED Abdominal Pain HPI - General Chief Complaint: Abdominal Pain Stated Complaint: NAUSEA VOMITING PUI?: No Time Seen by Provider: 01/04/20 16:10 Source: EMS Mode of arrival: Stretcher Limitations: No Limitations - History of Present Illness Initial Comments: Patient is a 59-year-old female that presents emergency room with complaints of right lower quadrant pain and nausea/ vomiting/ diarrhea. Patient states her symptoms have been going on for 2 or 3 weeks. Patient states her symptoms have been worsening. Patient states her abdominal pain is in the right lower quadrant radiates to her umbilicus. Patient denies blood in her stool or in her vomitus. Patient states she has been getting weaker. Patient states her mouth is dry. Patient denies fever and chills. Patient denies cough. Patient states that her abdominal pain is a 6 out of 10. Patient states is worse with movement and palpation. Patient states her abdominal pain is also worse with vomiting. Patient states her abdominal pain is better with rest. Patient denies recent travel. Patient denies recent international travel. Patient denies exposure to the novel coronavirus. Patient denies sick contacts. Patient denies fever and chills. Patient denies cough. . Patient denies coming in contact with anybody with symptoms of the novel coronavirus. MD Complaint: abdominal pain -: Gradual, week(s) Location: [facility] Radiation: other Migration to: no migration Severity: moderate, severe Severity scale (0 -10): 6 Quality: stabbing Consistency: constant Improves With: vomiting, movement, other Worsens With: rest Associated Symptoms: nausea, vomiting, diarrhea. denies: fever, chills, constipation, dysuria, hematemesis, hematochezia, melena, hematuria, anorexia, syncope - Related Data Home Medications Medication Instructions Recorded Confirmed Last Taken Insulin Aspart (Nf) [NovoLOG See Protocol SUB-Q ACHS 07/01/19 07/01/19 Unknown Flexpen] LORazepam [Ativan] 0.5 mg PO BID 07/01/19 07/01/19 Unknown Previous Rx's Medication Instructions Recorded Last Taken Type Levothyroxine [Synthroid] 100 mcg PO QAM 14 Days #14 tab 09/19/19 Unknown Rx Lispro Insulin [HumaLOG] 10 unit SQ TIDAC 30 Days #1 bottle 09/19/19 Unknown Rx Metoprolol Mauro/Hydrochlorothiaz 1 each PO DAILY 14 Days #14 tab 09/19/19 Unknown Rx [Metoprolol ER-Hctz 25-12.5 mg] Potassium Chloride [K-Dur] 20 meq PO QDAY 14 Days #14 09/19/19 Unknown Rx carBAMazepine [Carbamazepine] 100 mg PO TID 14 Days #42 tab 09/19/19 Unknown Rx Ondansetron [Zofran Odt] 4 mg PO Q6HR PRN #20 tab.rapdis 01/04/20 Unknown Rx Allergies Allergy/AdvReac Type Severity Reaction Status Date / Time amoxicillin Allergy Unknown Verified 06/29/19 17:23 azithromycin [From Zithromax] Allergy Unknown Verified 06/29/19 17:23 clonazepam [From Klonopin] Allergy Unknown Verified 06/29/19 17:23 codeine Allergy Unknown Verified 06/29/19 17:23 morphine Allergy Unknown Verified 06/29/19 17:23 Penicillins Allergy Anaphylaxis Verified 06/29/19 17:23 risperidone [From Risperdal] Allergy Unknown Verified 06/29/19 17:23 ED Review of Systems ROS: Stated complaint: NAUSEA VOMITING Other details as noted in HPI Constitutional: malaise, weakness. denies: chills, fever Eyes: denies: eye pain, eye discharge, vision change ENT: denies: ear pain, throat pain Respiratory: denies: cough, shortness of breath, wheezing Cardiovascular: denies: chest pain, palpitations Endocrine: no symptoms reported Gastrointestinal: abdominal pain, nausea, vomiting, diarrhea. denies: constipation, hematemesis, melena, hematochezia Genitourinary: denies: urgency, dysuria, discharge Musculoskeletal: denies: back pain, joint swelling, arthralgia Skin: denies: rash, lesions Neurological: weakness. denies: headache, paresthesias Psychiatric: denies: anxiety, depression Hematological/Lymphatic: denies: easy bleeding, easy bruising ED Past Medical Hx - Past Medical History Previous Medical History?: Yes Hx Hypertension: Yes (Metoprolol) Hx CVA: No Hx Heart Attack/AMI: No Hx Congestive Heart Failure: Yes Hx Diabetes: Yes (Novolog) Hx Renal Disease: No Hx Arthritis: No Hx Seizures: Yes (on tegretol) Hx Psychiatric Treatment: Yes Hx Asthma: No Hx COPD: Yes Hx Dementia: No Additional medical history: Kareem's Disease - Surgical History Past Surgical History?: Yes Hx Cholecystectomy: Yes Hx Appendectomy: No Additional Surgical History: 2000, knee - Family History Family history: no significant - Social History Smoking Status: Current Every Day Smoker Substance Use Type: None - Medications Home Medications: Home Medications Medication Instructions Recorded Confirmed Last Taken Type Insulin Aspart (Nf) [NovoLOG See Protocol SUB-Q ACHS 07/01/19 07/01/19 Unknown History Flexpen] LORazepam [Ativan] 0.5 mg PO BID 07/01/19 07/01/19 Unknown History Levothyroxine [Synthroid] 100 mcg PO QAM 14 Days #14 tab 09/19/19 Unknown Rx Lispro Insulin [HumaLOG] 10 unit SQ TIDAC 30 Days #1 bottle 09/19/19 Unknown Rx Metoprolol Mauro/Hydrochlorothiaz 1 each PO DAILY 14 Days #14 tab 09/19/19 Unknown Rx [Metoprolol ER-Hctz 25-12.5 mg] Potassium Chloride [K-Dur] 20 meq PO QDAY 14 Days #14 09/19/19 Unknown Rx carBAMazepine [Carbamazepine] 100 mg PO TID 14 Days #42 tab 09/19/19 Unknown Rx Ondansetron [Zofran Odt] 4 mg PO Q6HR PRN #20 tab.rapdis 01/04/20 Unknown Rx ED Physical Exam - General Limitations: No Limitations General appearance: alert, in no apparent distress - Head Head exam: Present: atraumatic, normocephalic - Eye Eye exam: Present: normal appearance - ENT ENT exam: Present: mucous membranes moist - Neck Neck exam: Present: normal inspection - Respiratory Respiratory exam: Present: normal lung sounds bilaterally. Absent: respiratory distress, wheezes, rales - Cardiovascular Cardiovascular Exam: Present: regular rate, normal rhythm. Absent: systolic murmur, diastolic murmur, rubs, gallop - GI/Abdominal GI/Abdominal exam: Present: soft, tenderness (Tenderness over the umbilicus and the right lower quadrant.), normal bowel sounds - Extremities Exam Extremities exam: Present: normal inspection - Back Exam Back exam: Present: normal inspection - Neurological Exam Neurological exam: Present: alert, oriented X3 - Psychiatric Psychiatric exam: Present: normal affect, normal mood - Skin Skin exam: Present: warm, dry, intact, normal color. Absent: rash ED Course Vital Signs 05/01/04/20 01/04/20 14:58 14:59 15:00 Temperature 98.7 F Pulse Rate 86 Respiratory Rate Blood Pressure 137/66 143/73 143/73 O2 Sat by Pulse Oximetry 01/04/20 01/04/20 01/04/20 15:30 16:00 16:30 Temperature Pulse Rate 78 78 69 Respiratory 11 L 15 15 Rate Blood Pressure 130/62 135/72 131/74 O2 Sat by Pulse 96 96 96 Oximetry 01/04/20 01/04/20 01/04/20 17:00 18:20 18:30 Temperature Pulse Rate 79 77 72 Respiratory 12 17 15 Rate Blood Pressure 135/67 145/68 131/61 O2 Sat by Pulse 87 89 94 Oximetry 01/04/20 19:00 Temperature Pulse Rate 76 Respiratory 12 Rate Blood Pressure 130/63 O2 Sat by Pulse 94 Oximetry - Reevaluation(s) Reevaluation #1: I discussed all results and clinical findings with patient. I discussed plan of care with patient. Patient agrees with plan of care. Patient is stable for discharge. Patient will be discharged home. Patient given discharge instructions. Patient voiced understanding of discharge instructions. 01/04/20 19:32 ED Medical Decision Making - Lab Data Result diagrams: 01/04/20 16:51 01/04/20 16:51 - EKG Data -: EKG Interpreted by Ok EKG shows normal: sinus rhythm, axis, intervals, QRS complexes, ST-T waves Rate: normal - Radiology Data Radiology results: report reviewed CT ABDOMEN AND PELVIS WITH IV CONTRAST INDICATION: Abdominal Pain. COMPARISON: None available. TECHNIQUE: All CT scans at this facility use dose modulation, automated exposure control, iterative reconstruction or weight based dosing, when appropriate, to reduce radiation dose to as low as reasonably achievable. FINDINGS: Lung Bases: No significant abnormality. Skeletal System: No acute abnormality. ABDOMEN: Liver: Mild hepatic steatosis. Gallbladder: Removed. Bile Ducts: No significant abnormality. Pancreas: No significant abnormality. Spleen: No significant abnormality. Adrenals: No significant abnormality. Right Kidney: No significant abnormality. Left Kidney: No significant abnormality. Upper GI tract: No significant abnormality. Lymph Nodes: No significant adenopathy. Aorta: No significant abnormality. Additional Findings: There has been prior umbilical ventral hernia repair. There is a tiny recurrent/residual midline infraumbilical fat-containing hernia. PELVIS: Colon: No acute abnormality. Urinary Bladder and Distal Ureters: No significant abnormality. Appendix: No significant abnormality. Lymph Nodes: No significant adenopathy. Additional Findings: None. IMPRESSION: 1. No acute process in the abdomen or pelvis. 2. Prior ventral hernia repair with tiny residual/recurrent midline infraumbilical ventral hernia adjacent to the mesh. No stranding or fluid collection. - Medical Decision Making Patient is a 59-year-old female that presents emergency room with complaints of right lower quadrant pain. Patient's pain is radiating to her umbilicus. Patient's labs are unremarkable. Patient's had a CT scan since her pain was in the right lower quadrant. Patient CT scan was negative for acute findings. Patient's clinical findings are consistent with a gastroenteritis. Patient given Zofran and fluids and responded well. Patient will be discharged home with a prescription for Zofran. Patient instructed to eat a brat diet. Patient tolerated p.o. intake prior to discharge. Patient stable for discharge. Patient discharged home. - Differential Diagnosis Abdominal pain, appendicitis, gastroenteritis, nausea vomiting diarrhea Critical care attestation.: If time is entered above; I have spent that time in minutes in the direct care of this critically ill patient, excluding procedure time. ED Disposition Clinical Impression: Gastroenteritis Abdominal pain Qualifiers: Abdominal location: right lower quadrant Qualified Code(s): R10.31 - Right lower quadrant pain Nausea & vomiting Qualifiers: Vomiting type: unspecified Vomiting Intractability: non-intractable Qualified Code(s): R11.2 - Nausea with vomiting, unspecified Diarrhea Qualifiers: Diarrhea type: unspecified type Qualified Code(s): R19.7 - Diarrhea, unspecified Disposition: DC-01 TO HOME OR SELFCARE Is pt being admited?: No Does the pt Need Aspirin: No Condition: Stable Instructions: Abdominal Pain (ED), Gastroenteritis (ED), Acute Nausea and Vomiting (ED), Traveler's Diarrhea (ED) Additional Instructions: Patient to follow-up with primary care in 2 to 3 days. Patient to eat a brat diet. Patient to rest. Patient to increase water. Patient to take Tylenol as needed for pain. Patient to take meds as directed. Patient to return to the ER if condition worsens, changes or new symptoms arise. Prescriptions: Ondansetron [Zofran Odt] 4 mg PO Q6HR PRN #20 tab.corneliodis PRN Reason: Nausea And Vomiting Referrals: PRIMARY CARE, [Primary Care Provider] - 2-3 Days Time of Disposition: 19:35
[2020-01-04] MEDS ORDERED: ONDANSETRON 4 MG/2 ML INJ IV ONE (16:48)
[2020-01-04] MEDS ORDERED: SODIUM CHLORIDE 0.9% 500 ML 500 ML IV ONE (16:48)
[2020-01-04 17:12] LABS: Basophils % (Auto) 0.4 % (0.0-1.8); Eosinophils # (Auto) 0.1 K/mm3 (0.0-0.4); Hematocrit 41.5 % (30.3-42.9); Hemoglobin 14.5 gm/dl (10.1-14.3); Lymphocytes # (Auto) 2.2 K/mm3 (1.2-5.4); Lymphocytes % (Auto) 34.8 % (13.4-35.0); Mean Corpuscular HGB Conc 35 % (30-34); Mean Corpuscular Volume 91 fl (79-97); Monocytes # (Auto) 0.4 K/mm3 (0.0-0.8); Monocytes % (Auto) 6.4 % (0.0-7.3); Platelet Count 197 K/mm3 (140-440); Red Blood Count 4.58 M/mm3 (3.65-5.03); Red Cell Distribution Width 12.6 % (13.2-15.2)
[2020-01-04 17:31] LABS: Alanine Aminotransferase 16 units/L (7-56); Albumin 3.8 g/dL (3.9-5); BUN/Creatinine Ratio 22; Blood Urea Nitrogen 13 mg/dL (7-17); Calcium 9.2 mg/dL (8.4-10.2); Hemolysis Index 13
[2020-01-04 17:34] LABS: Bilirubin,Direct < 0.2 mg/dL (0-0.2)
[2020-01-04 18:33] LABS: Bilirubin,Urine NEG (Negative); Blood,Urine NEG (Negative); Color,Urine Straw (Yellow); Protein,Urine <15 mg/dL mg/dL (Negative); Urobilinogen,Urine < 2.0 mg/dL (<2.0); WBC,Urine < 1.0 /HPF (0.0-6.0)
--- NOTE | 2020-01-04 18:36 | Cat Scan Report ---
CT ABDOMEN AND PELVIS WITH IV CONTRAST INDICATION: Abdominal Pain. COMPARISON: None available. TECHNIQUE: All CT scans at this facility use dose modulation, automated exposure control, iterative reconstructi on or weight based dosing, when appropriate, to reduce radiation dose to as low as reasonably achieva ble. FINDINGS: Lung Bases: No significant abnormality. Skeletal System: No acute abnormality. ABDOMEN: Liver: Mild hepatic steatosis. Gallbladder: Removed. Bile Ducts: No significant abnormality. Pancreas: No significant abnormality. Spleen: No significant abnormality. Adrenals: No significant abnormality. Right Kidney: No significant abnormality. Left Kidney: No significant abnormality. Upper GI tract: No significant abnormality. Lymph Nodes: No significant adenopathy. Aorta: No significant abnormality. Additional Findings: There has been prior umbilical ventral hernia repair. There is a tiny recurrent/ residual midline infraumbilical fat-containing hernia. PELVIS: Colon: No acute abnormality. Urinary Bladder and Distal Ureters: No significant abnormality. Appendix: No significant abnormality. Lymph Nodes: No significant adenopathy. Additional Findings: None. IMPRESSION: 1. No acute process in the abdomen or pelvis. 2. Prior ventral hernia repair with tiny residual/recurrent midline infraumbilical ventral hernia ad jacent to the mesh. No stranding or fluid collection. Signer Name: Romaine Muir MD Signed: 01/04/2020 6:31 PM Workstation Name: [id number]
[2020-01-04 20:05] VITALS: BP 130/63
== END 2020-01-04 20:05 | disposition home or self-care (01) ==
LOC: ED 14:36
DX: K52.9 Noninfective gastroenteritis and colitis, unspecified (principal); R11.2 Nausea with vomiting, unspecified; R10.31 Right lower quadrant pain; I11.0 Hypertensive heart disease with heart failure; I50.9 Heart failure, unspecified; E11.9 Type 2 diabetes mellitus without complications; J44.9 Chronic obstructive pulmonary disease, unspecified; F17.200 Nicotine dependence, unspecified, uncomplicated; Z79.899 Other long term (current) drug therapy; Z86.69 Personal history of other diseases of the nervous system and sense organs; Z98.890 Other specified postprocedural states; Z88.0 Allergy status to penicillin; Z88.6 Allergy status to analgesic agent; Z88.8 Allergy status to other drugs, medicaments and biological substances; Z90.49 Acquired absence of other specified parts of digestive tract
CPT/HCPCS: 36415; 74177; 80048; 80076; 81001; 82962; 83690; 85025; 93005; 96361; 96374; 99285; J2405; J7040; Q9967

== ENCOUNTER 2020-12-25 13:58 | Emergency (ER) | payer MEDICARE ==
[2020-12-25 15:04] LABS: Basophils % (Auto) 0.5 % (0.0-1.8); Eosinophils # (Auto) 0.1 K/mm3 (0.0-0.4); Hematocrit 44.1 % (30.3-42.9); Hemoglobin 15.3 gm/dl (10.1-14.3); Lymphocytes # (Auto) 2.2 K/mm3 (1.2-5.4); Lymphocytes % (Auto) 28.5 % (13.4-35.0); Mean Corpuscular HGB Conc 35 % (30-34); Mean Corpuscular Volume 93 fl (79-97); Monocytes # (Auto) 0.5 K/mm3 (0.0-0.8); Platelet Count 256 K/mm3 (140-440); Red Blood Count 4.74 M/mm3 (3.65-5.03); Red Cell Distribution Width 12.4 % (13.2-15.2)
--- NOTE | 2020-12-25 15:06 | Event Note ---
ED Screening Note Date of service: 12/25/20 Time: 15:05 ED Screening Note: Pt complains of abdominal pain and swelling x 3 days hx of CHF, DM, HTN, Thyroid disease +SOB, denies CP no hx of liver disease per pt This initial assessment/diagnostic orders/clinical plan/treatment(s) is/are subject to change based on patients health status, clinical progression and re- assessment by fellow clinical providers in the ED. Further treatment and workup at subsequent clinical providers discretion. Patient/guardian urged not to elope from the ED as their condition may be serious if not clinically assessed and managed. Initial orders include: labs CXR EKG
[2020-12-25 15:26] LABS: Alanine Aminotransferase 12 units/L (7-56); Albumin 4.2 g/dL (3.9-5); Blood Urea Nitrogen 13 mg/dL (7-17); Calcium 9.2 mg/dL (8.4-10.2); Hemolysis Index 23
[2020-12-25 15:35] LABS: BUN/Creatinine Ratio 22
[2020-12-25 15:43] LABS: Bacteria,Urine 1+ /HPF (Negative); Bilirubin,Urine NEG (Negative); Blood,Urine NEG (Negative); Color,Urine Yellow (Yellow); Protein,Urine <15 mg/dL mg/dL (Negative); Urobilinogen,Urine < 2.0 mg/dL (<2.0)
--- NOTE | 2020-12-25 16:12 | XRay Report ---
CHEST 2 VIEWS INDICATION: shortness of breath. COMPARISON: None FINDINGS: SUPPORT DEVICES: None. HEART: Within normal limits. LUNGS/PLEURA: No acute air space or interstitial disease. No pneumothorax. ADDITIONAL FINDINGS: None. IMPRESSION: 1. No acute findings. Signer Name: Jh Malik MD Signed: 12/25/2020 4:08 PM Workstation Name: [id number]
[2020-12-25 22:04] VITALS: BP 152/78
--- NOTE | 2020-12-25 22:22 | Emergency Department Report ---
ED General Adult HPI - General Chief complaint: Abdominal Pain Stated complaint: ABD PAIN, SOB, BLOOD GLUCOSE ELEVATED Time Seen by Provider: 12/25/20 14:45 Source: patient Mode of arrival: Ambulatory Limitations: No Limitations - History of Present Illness Initial comments: CC: "My sugars have been low. My potassium is low." HPI: This is a 60 yo female with hx of hypertension, IDDM, Kareem's disease, hypokalemia, "adrenal gland" disorder, PTSD, schizoaffective disorder, who present with low blood sugar readings. She feels generally weak. She feels her potassium is low. SHe has abdominal bloating for 3 weeks. She is concerned for the color of her stool which is yellow. She has nausea without vomiting. She has been able to tolerate food although she has poor appetite. Pedialyte improves her symptoms. She saw her PCP 1 week ago. She has appointment with GI specialist on January 07. -: Gradual, week(s) (3 weeks) Location: abdomen Severity scale (0 -10): 0 Consistency: now resolved Improves with: other (pedialyte) Worsens with: none Associated Symptoms: other (generalized weakness and nausea) - Related Data Home Medications Medication Instructions Recorded Confirmed Last Taken Insulin Aspart (Nf) [NovoLOG See Protocol SUB-Q ACHS 07/01/19 07/01/19 Unknown Flexpen] LORazepam [Ativan] 0.5 mg PO BID 07/01/19 07/01/19 Unknown Previous Rx's Medication Instructions Recorded Last Taken Type Levothyroxine [Synthroid] 100 mcg PO QAM 14 Days #14 tab 09/19/19 Unknown Rx Lispro Insulin [HumaLOG] 10 unit SQ TIDAC 30 Days #1 bottle 09/19/19 Unknown Rx Metoprolol Mauro/Hydrochlorothiaz 1 each PO DAILY 14 Days #14 tab 09/19/19 Unknown Rx [Metoprolol ER-Hctz 25-12.5 mg] Potassium Chloride [K-Dur] 20 meq PO QDAY 14 Days #14 09/19/19 Unknown Rx carBAMazepine [Carbamazepine] 100 mg PO TID 14 Days #42 tab 09/19/19 Unknown Rx Ondansetron [Zofran Odt] 4 mg PO Q6HR PRN #20 tab.rapdis 01/04/20 Unknown Rx Ondansetron [Zofran Odt] 4 mg PO Q8HR PRN #10 tab.rapdis 12/25/20 Unknown Rx Allergies Allergy/AdvReac Type Severity Reaction Status Date / Time amoxicillin Allergy Unknown Verified 12/25/20 14:23 azithromycin [From Zithromax] Allergy Unknown Verified 12/25/20 14:23 clonazepam [From Klonopin] Allergy Unknown Verified 12/25/20 14:23 codeine Allergy Unknown Verified 12/25/20 14:23 morphine Allergy Unknown Verified 12/25/20 14:23 Penicillins Allergy Anaphylaxis Verified 12/25/20 14:23 risperidone [From Risperdal] Allergy Unknown Verified 12/25/20 14:23 Androgenic Anabolic Steroid AdvReac Unknown Verified 12/25/20 14:23 divalproex sodium AdvReac Unknown Verified 12/25/20 14:23 [From Depakote] NSAIDS (Non-Steroidal AdvReac Unknown Verified 12/25/20 14:23 Anti-Inflamma ED Review of Systems ROS: Stated complaint: ABD PAIN, SOB, BLOOD GLUCOSE ELEVATED Other details as noted in HPI Comment: All other systems reviewed and negative Constitutional: denies: chills, fever, malaise Respiratory: denies: cough, shortness of breath Gastrointestinal: nausea. denies: abdominal pain, vomiting, diarrhea, hematemesis Musculoskeletal: denies: back pain ED Past Medical Hx - Past Medical History Previous Medical History?: Yes Hx Hypertension: Yes (Metoprolol) Hx CVA: No Hx Heart Attack/AMI: No Hx Congestive Heart Failure: Yes Hx Diabetes: Yes (Novolog) Hx Renal Disease: No Hx Arthritis: No Hx Seizures: Yes (on tegretol) Hx Psychiatric Treatment: Yes Hx Asthma: No Hx COPD: Yes Hx Dementia: No Additional medical history: Kareem's Disease - Surgical History Hx Cholecystectomy: Yes Hx Appendectomy: No Additional Surgical History: 1999, knee - Social History Smoking Status: Current Every Day Smoker Substance Use Type: None - Medications Home Medications: Home Medications Medication Instructions Recorded Confirmed Last Taken Type Insulin Aspart (Nf) [NovoLOG See Protocol SUB-Q ACHS 07/01/19 07/01/19 Unknown History Flexpen] LORazepam [Ativan] 0.5 mg PO BID 07/01/19 07/01/19 Unknown History Levothyroxine [Synthroid] 100 mcg PO QAM 14 Days #14 tab 09/19/19 Unknown Rx Lispro Insulin [HumaLOG] 10 unit SQ TIDAC 30 Days #1 bottle 09/19/19 Unknown Rx Metoprolol Mauro/Hydrochlorothiaz 1 each PO DAILY 14 Days #14 tab 09/19/19 Unknown Rx [Metoprolol ER-Hctz 25-12.5 mg] Potassium Chloride [K-Dur] 20 meq PO QDAY 14 Days #14 09/19/19 Unknown Rx carBAMazepine [Carbamazepine] 100 mg PO TID 14 Days #42 tab 09/19/19 Unknown Rx Ondansetron [Zofran Odt] 4 mg PO Q6HR PRN #20 tab.rapdis 01/04/20 Unknown Rx Ondansetron [Zofran Odt] 4 mg PO Q8HR PRN #10 tab.rapdis 12/25/20 Unknown Rx ED Physical Exam - General Limitations: No Limitations General appearance: alert, in no apparent distress, other (No acute distress) - Head Head exam: Present: atraumatic, normocephalic - Eye Eye exam: Present: normal appearance - ENT ENT exam: Present: mucous membranes moist - Neck Neck exam: Present: normal inspection, full ROM - Respiratory Respiratory exam: Present: normal lung sounds bilaterally. Absent: respiratory distress, wheezes, rales, rhonchi - Cardiovascular Cardiovascular Exam: Present: regular rate, normal rhythm, normal heart sounds. Absent: systolic murmur, diastolic murmur, rubs, gallop - GI/Abdominal GI/Abdominal exam: Present: soft, normal bowel sounds. Absent: distended, tenderness, guarding, rebound - Extremities Exam Extremities exam: Present: normal inspection - Neurological Exam Neurological exam: Present: alert, oriented X3 - Psychiatric Psychiatric exam: Present: normal affect, normal mood - Skin Skin exam: Present: warm, dry, intact, normal color. Absent: rash ED Course Vital Signs 12/25/20 12/25/20 14:19 22:03 Temperature 98.2 F Pulse Rate 102 H 88 Respiratory 20 18 Rate Blood Pressure 149/86 Blood Pressure 152/78 [Right] O2 Sat by Pulse 95 96 Oximetry ED Medical Decision Making - Lab Data Result diagrams: 12/25/20 14:39 12/25/20 14:39 Laboratory Results - last 24 hr 12/25/20 12/25/20 12/25/20 14:39 14:39 14:40 WBC 7.8 RBC 4.74 Hgb 15.3 H Hct 44.1 H MCV 93 MCH 32 MCHC 35 H RDW 12.4 L Plt Count 256 Lymph % (Auto) 28.5 Brown % (Auto) 7.0 Eos % (Auto) 1.0 Baso % (Auto) 0.5 Lymph # (Auto) 2.2 Brown # (Auto) 0.5 Eos # (Auto) 0.1 Baso # (Auto) 0.0 Seg Neutrophils % 63.0 Seg Neutrophils # 4.9 Sodium 139 Potassium 4.6 Chloride 104.4 Carbon Dioxide 24 Anion Gap 15 BUN 13 Creatinine 0.6 Estimated GFR > 60 BUN/Creatinine Ratio 22 Glucose 125 H Calcium 9.2 Total Bilirubin 0.20 AST 17 ALT 12 Alkaline Phosphatase 106 Troponin T NT-Pro-B Natriuret Pep Total Protein 7.1 Albumin 4.2 Albumin/Globulin Ratio 1.4 Lipase 30 Urine Color Yellow Urine Turbidity Clear Urine pH 5.0 Ur Specific [place] 1.014 Urine Protein <15 mg/dl Urine Glucose (UA) Neg Urine Ketones Neg Urine Blood Neg Urine Nitrite Neg Urine Bilirubin Neg Urine Urobilinogen < 2.0 Ur Leukocyte Esterase Neg Urine WBC (Auto) 1.0 Urine RBC (Auto) 1.0 U Epithel Cells (Auto) 2.0 Urine Bacteria (Auto) 1+ 12/25/20 12/25/20 15:05 20:04 WBC RBC Hgb Hct MCV MCH MCHC RDW Plt Count Lymph % (Auto) Brown % (Auto) Eos % (Auto) Baso % (Auto) Lymph # (Auto) Brown # (Auto) Eos # (Auto) Baso # (Auto) Seg Neutrophils % Seg Neutrophils # Sodium Potassium Chloride Carbon Dioxide Anion Gap BUN Creatinine Estimated GFR BUN/Creatinine Ratio Glucose Calcium Total Bilirubin AST ALT Alkaline Phosphatase Troponin T < 0.010 NT-Pro-B Natriuret Pep 67.57 Total Protein Albumin Albumin/Globulin Ratio Lipase Urine Color Urine Turbidity Urine pH Ur Specific [place] Urine Protein Urine Glucose (UA) Urine Ketones Urine Blood Urine Nitrite Urine Bilirubin Urine Urobilinogen Ur Leukocyte Esterase Urine WBC (Auto) Urine RBC (Auto) U Epithel Cells (Auto) Urine Bacteria (Auto) - EKG Data -: EKG Interpreted by Nv EKG shows normal: sinus rhythm, axis, intervals, QRS complexes, ST-T waves Rate: normal - EKG Data 05/04/21 22:20 EKG obtained 1512 EKG interpreted by me Normal sinus rhythm rate 90 bpm normal axis normal intervals no ST-T signs of ischemia - Radiology Data Radiology results: report reviewed Chest radiograph: No acute findings according to radiologist report - Medical Decision Making 1. Abdominal distention with nausea: Differential diagnosis includes IBS, diabetic gastroparesis: Prescribed Zofran. She has GI appointment. 2. Generalized weakness: No anemia, no electrolyte abnormality. Suspect generalized weakness due to poor p.o. intake and fluctuating blood sugar level. 3. Insulin-dependent diabetes: Patient euglycemic on chemistry panel obtained today.. Recommended discussing insulin medication adjustments with PCP. Her therapeutic massage technician recently . Consequently she does not have a current therapeutic massage technician. Critical care attestation.: If time is entered above; I have spent that time in minutes in the direct care of this critically ill patient, excluding procedure time. ED Disposition Clinical Impression: Insulin dependent diabetes mellitus, History of hypokalemia, Irritable bowel syndrome Disposition: TO HOME OR SELFCARE Is pt being admited?: No Does the pt Need Aspirin: No Condition: Stable Instructions: Abdominal Pain (ED), Diabetes Mellitus Type 2 in Adults (ED), Diet for Irritable Bowel Syndrome Prescriptions: Ondansetron [Zofran Odt] 4 mg PO Q8HR PRN #10 tab.rapdis PRN Reason: Nausea Referrals: LEN CASANOVA,JENNIFER [Other] - 3-5 Days
--- NOTE | 2020-12-27 17:27 | Electrocardiograph Report ---
[facility] Test Date: 2020-12-25 Test Time: 15:12:12 Pat Name: NOAH TRAN Department: Room: Gender: F Clam Digger: MELCHOR : 1960 Requested By: RIO HUERTAS Order Number: [id number] Reading MD: Alex Richter Measurements Intervals [place] Rate: 88 P: 74 TX: 150 QRS: 66 QRSD: 91 T: -85 QT: 339 QTc: 411 Interpretive Statements Sinus rhythm Probable left atrial enlargement Low voltage, precordial leads Non specic ST changes noted. No previous ECG available for comparison Electronically Signed On 12-27-2020 17:27:00 EDT by Alex Richter
== END 2020-12-25 22:42 | disposition home or self-care (01) ==
LOC: ED 13:58
DX: E11.8 Type 2 diabetes mellitus with unspecified complications (principal); E87.6 Hypokalemia; K58.9 Irritable bowel syndrome, unspecified; I10 Essential (primary) hypertension; G40.909 Epilepsy, unspecified, not intractable, without status epilepticus; J44.9 Chronic obstructive pulmonary disease, unspecified; F17.200 Nicotine dependence, unspecified, uncomplicated; Z79.4 Long term (current) use of insulin; Z79.899 Other long term (current) drug therapy; Z88.1 Allergy status to other antibiotic agents; Z88.6 Allergy status to analgesic agent; Z88.8 Allergy status to other drugs, medicaments and biological substances
CPT/HCPCS: 36415; 71046; 80053; 81001; 83690; 83880; 84484; 85025; 93005

== ENCOUNTER 2022-03-19 16:05 | Emergency (ER) | payer MEDICARE ==
[2022-03-19 17:06] VITALS: BP 162/88
[2022-03-19] MEDS ORDERED: SODIUM CHLORIDE 0.9% 1000 ML 1,000 ML IV ONE (20:37)
[2022-03-19] MEDS ORDERED: ONDANSETRON 4 MG/2 ML INJ IV ONE (20:37)
[2022-03-19] MEDS ORDERED: MORPHINE 4 MG/1 ML INJ IV ONE (20:37)
[2022-03-19 21:58] LABS: Hematocrit 40.7 % (30.3-42.9); Hemoglobin 14.2 gm/dl (10.1-14.3); Mean Corpuscular HGB Conc 35 % (30-34); Mean Corpuscular Volume 88 fl (79-97); Platelet Count 260 K/mm3 (140-440); Red Blood Count 4.63 M/mm3 (3.65-5.03); Red Cell Distribution Width 14.2 % (13.2-15.2)
[2022-03-19 22:19] LABS: Albumin 4.5 g/dL (3.9-5); Calcium 9.6 mg/dL (8.4-10.2)
[2022-03-19 22:59] LABS: Basophils % (Manual) 0 % (0.0-1.8); Eosinophils % (Manual) 0 % (0.0-4.3); Total Cells Counted 100
[2022-03-19 23:00] LABS: Platelet Estimate Consistent w Auto
--- NOTE | 2022-03-19 23:07 | Cat Scan Report ---
CT ABDOMEN AND PELVIS WITH CONTRAST INDICATION / CLINICAL INFORMATION: rlq pain. TECHNIQUE: Axial CT images were obtained through the abdomen and pelvis after IV contrast. All CT sc ans at this location are performed using CT dose reduction for ALARA by means of automated exposure c ontrol. COMPARISON: None available. FINDINGS: LOWER CHEST: Multiple 3 to 4 mm noncalcified pulmonary nodules posterior sulcus right lower lobe. LIVER: Diffuse low attenuation compatible with hepatic steatosis. GALLBLADDER / BILE DUCTS: Cholecystectomy. Biliary ducts grossly unremarkable. SPLEEN: No significant abnormality. PANCREAS: No significant abnormality. ADRENALS: No significant abnormality. KIDNEYS/URETERS: No stones or hydronephrosis. No solid renal lesion. STOMACH / DUODENUM / SMALL BOWEL: The stomach, duodenum, and small bowel demonstrate no significant a bnormality. No specific abnormality of the mesentery demonstrated. COLON: No significant abnormality. APPENDIX: No significant abnormality. PERITONEUM: No free air or free fluid are present within the abdomen or pelvis. LYMPH NODES: No significant adenopathy. AORTA / ARTERIES: No significant abnormality. IVC / VEINS: No significant abnormality. URINARY BLADDER: No significant abnormality. REPRODUCTIVE ORGANS: No significant abnormality. SKELETAL SYSTEM: No significant abnormality. ADDITIONAL ABDOMINAL/PELVIC FINDINGS: Small fat-containing midline ventral hernia. IMPRESSION: 1. No imaging findings to suggest etiology of the provided symptoms. Signer Name: You De Leon II, MD Signed: 03/19/2022 11:02 PM Workstation Name: [id number]
--- NOTE | 2022-03-19 23:22 | Emergency Department Report ---
ED General Adult HPI - General Chief complaint: Nausea/Vomiting/Diarrhea Stated complaint: NAUSEA Time Seen by Provider: 03/19/22 20:12 Source: EMS Mode of arrival: Stretcher Limitations: No Limitations - History of Present Illness Initial comments: The patient presents to the emergency department with a chief complaint of nausea, vomiting, diarrhea that has been present for the last 7 days. Patient also complains of abdominal pain to the right lower part of abdomen. Patient states that pain has been present for the last 3 days and is sharp in nature. She denies any chest pain or shortness of breath. -: Gradual Location: abdomen Radiation: non-radiation Severity scale (0 -10): 10 Consistency: constant Improves with: none Worsens with: none Associated Symptoms: nausea/vomiting Treatments Prior to Arrival: none - Related Data Home Medications Medication Instructions Recorded Confirmed Last Taken Insulin Aspart (Nf) [NovoLOG See Protocol SUB-Q ACHS 07/01/19 07/01/19 Unknown Flexpen] LORazepam [Ativan] 0.5 mg PO BID 07/01/19 07/01/19 Unknown Previous Rx's Medication Instructions Recorded Last Taken Type Levothyroxine [Synthroid] 100 mcg PO QAM 14 Days #14 tab 09/19/19 Unknown Rx Lispro Insulin [HumaLOG] 10 unit SQ TIDAC 30 Days #1 bottle 09/19/19 Unknown Rx Metoprolol Mauro/Hydrochlorothiaz 1 each PO DAILY 14 Days #14 tab 09/19/19 Unknown Rx [Metoprolol ER-Hctz 25-12.5 mg] Potassium Chloride [K-Dur] 20 meq PO QDAY 14 Days #14 09/19/19 Unknown Rx carBAMazepine [Carbamazepine] 100 mg PO TID 14 Days #42 tab 09/19/19 Unknown Rx Ondansetron [Zofran Odt] 4 mg PO Q6HR PRN #20 tab.rapdis 01/04/20 Unknown Rx Ondansetron [Zofran Odt] 4 mg PO Q8HR PRN #10 tab.rapdis 12/25/20 Unknown Rx Promethazine [Phenergan TAB] 25 mg PO Q6HR PRN #20 tab 03/19/22 Unknown Rx Promethazine [Phenergan TAB] 25 mg PO Q6HR PRN #20 tab 03/19/22 Unknown Rx Allergies Allergy/AdvReac Type Severity Reaction Status Date / Time amoxicillin Allergy Unknown Verified 12/25/20 14:23 azithromycin [From Zithromax] Allergy Unknown Verified 12/25/20 14:23 clonazepam [From Klonopin] Allergy Unknown Verified 12/25/20 14:23 codeine Allergy Unknown Verified 12/25/20 14:23 morphine Allergy Unknown Verified 12/25/20 14:23 Penicillins Allergy Anaphylaxis Verified 12/25/20 14:23 risperidone [From Risperdal] Allergy Unknown Verified 12/25/20 14:23 Androgenic Anabolic Steroid AdvReac Unknown Verified 12/25/20 14:23 divalproex sodium AdvReac Unknown Verified 12/25/20 14:23 [From Depakote] NSAIDS (Non-Steroidal AdvReac Unknown Verified 12/25/20 14:23 Anti-Inflamma ED Review of Systems ROS: Stated complaint: NAUSEA Other details as noted in HPI Constitutional: denies: chills, fever Eyes: denies: eye pain, eye discharge, vision change ENT: denies: ear pain, throat pain Respiratory: denies: cough, shortness of breath, wheezing Cardiovascular: denies: chest pain, palpitations Endocrine: no symptoms reported Gastrointestinal: abdominal pain, nausea, vomiting. denies: diarrhea Genitourinary: denies: urgency, dysuria, discharge Musculoskeletal: denies: back pain, joint swelling, arthralgia Skin: denies: rash, lesions Neurological: denies: headache, weakness, paresthesias Psychiatric: denies: anxiety, depression Hematological/Lymphatic: denies: easy bleeding, easy bruising ED Past Medical Hx - Past Medical History Previous Medical History?: Yes Hx Hypertension: Yes (Metoprolol) Hx CVA: No Hx Heart Attack/AMI: No Hx Congestive Heart Failure: Yes Hx Diabetes: Yes (Novolog) Hx Renal Disease: No Hx Arthritis: No Hx Seizures: Yes (on tegretol) Hx Psychiatric Treatment: Yes Hx Asthma: No Hx COPD: Yes Hx Dementia: No Additional medical history: Kareem's Disease - Surgical History Past Surgical History?: Yes Hx Cholecystectomy: Yes Hx Appendectomy: No Additional Surgical History: 1999, knee - Social History Smoking Status: Never Smoker - Medications Home Medications: Home Medications Medication Instructions Recorded Confirmed Last Taken Type Insulin Aspart (Nf) [NovoLOG See Protocol SUB-Q ACHS 07/01/19 07/01/19 Unknown History Flexpen] LORazepam [Ativan] 0.5 mg PO BID 07/01/19 07/01/19 Unknown History Levothyroxine [Synthroid] 100 mcg PO QAM 14 Days #14 tab 09/19/19 Unknown Rx Lispro Insulin [HumaLOG] 10 unit SQ TIDAC 30 Days #1 bottle 09/19/19 Unknown Rx Metoprolol Mauro/Hydrochlorothiaz 1 each PO DAILY 14 Days #14 tab 09/19/19 Unknown Rx [Metoprolol ER-Hctz 25-12.5 mg] Potassium Chloride [K-Dur] 20 meq PO QDAY 14 Days #14 09/19/19 Unknown Rx carBAMazepine [Carbamazepine] 100 mg PO TID 14 Days #42 tab 09/19/19 Unknown Rx Ondansetron [Zofran Odt] 4 mg PO Q6HR PRN #20 tab.rapdis 01/04/20 Unknown Rx Ondansetron [Zofran Odt] 4 mg PO Q8HR PRN #10 tab.rapdis 12/25/20 Unknown Rx Promethazine [Phenergan TAB] 25 mg PO Q6HR PRN #20 tab 03/19/22 Unknown Rx Promethazine [Phenergan TAB] 25 mg PO Q6HR PRN #20 tab 03/19/22 Unknown Rx ED Physical Exam - General Limitations: No Limitations General appearance: alert, in no apparent distress - Head Head exam: Present: atraumatic, normocephalic - Eye Eye exam: Present: normal appearance, PERRL, EOMI - ENT ENT exam: Present: mucous membranes moist - Neck Neck exam: Present: normal inspection - Respiratory Respiratory exam: Present: normal lung sounds bilaterally. Absent: respiratory distress - Cardiovascular Cardiovascular Exam: Present: regular rate, normal rhythm. Absent: systolic murmur, diastolic murmur, rubs, gallop - GI/Abdominal GI/Abdominal exam: Present: soft, tenderness (TTP RLQ), normal bowel sounds. A bsent: distended - Extremities Exam Extremities exam: Present: normal inspection - Back Exam Back exam: Present: normal inspection - Neurological Exam Neurological exam: Present: alert, oriented X3, CN II-XII intact. Absent: motor sensory deficit - Psychiatric Psychiatric exam: Present: normal affect, normal mood - Skin Skin exam: Present: warm, dry, intact, normal color. Absent: rash ED Course Vital Signs 03/19/22 03/19/22 17:04 22:26 Temperature 97.8 F Pulse Rate 106 H Respiratory 17 Rate Blood Pressure 162/88 [Left] O2 Sat by Pulse 98 96 Oximetry ED Medical Decision Making - Lab Data Result diagrams: 03/19/22 21:32 03/19/22 21:32 Lab Results 03/19/22 03/19/22 Range/Units 21:32 21:32 WBC 8.8 (4.5-11.0) K/mm3 RBC 4.63 (3.65-5.03) M/mm3 Hgb 14.2 (10.1-14.3) gm/dl Hct 40.7 (30.3-42.9) % MCV 88 (79-97) fl MCH 31 (28-32) pg MCHC 35 H (30-34) % RDW 14.2 (13.2-15.2) % Plt Count 260 (140-440) K/mm3 Add Manual Diff Complete Total Counted 100 Seg Neuts % (Manual) 74.0 H (40.0-70.0) % Band Neutrophils % 0 % Lymphocytes % (Manual) 21.0 (13.4-35.0) % Reactive Lymphs % (Man) 0 % Monocytes % (Manual) 5.0 (0.0-7.3) % Eosinophils % (Manual) 0 (0.0-4.3) % Basophils % (Manual) 0 (0.0-1.8) % Metamyelocytes % 0 % Myelocytes % 0 % Promyelocytes % 0 % Blast Cells % 0 % Nucleated RBC % Not Reportable Seg Neutrophils # Man 6.5 (1.8-7.7) K/mm3 Band Neutrophils # 0.0 K/mm3 Lymphocytes # (Manual) 1.8 (1.2-5.4) K/mm3 Abs React Lymphs (Man) 0.0 K/mm3 Monocytes # (Manual) 0.4 (0.0-0.8) K/mm3 Eosinophils # (Manual) 0.0 (0.0-0.4) K/mm3 Basophils # (Manual) 0.0 (0.0-0.1) K/mm3 Metamyelocytes # 0.0 K/mm3 Myelocytes # 0.0 K/mm3 Promyelocytes # 0.0 K/mm3 Blast Cells # 0.0 K/mm3 WBC Morphology Not Reportable Hypersegmented Neuts Not Reportable Hyposegmented Neuts Not Reportable Hypogranular Neuts Not Reportable Smudge Cells Not Reportable Toxic Granulation Not Reportable Toxic Vacuolation Not Reportable Dohle Bodies Not Reportable Pelger-Huet Anomaly Not Reportable Uzma Rods Not Reportable Platelet Estimate Consistent w auto Clumped Platelets Not Reportable Plt Clumps, EDTA Not Reportable Large Platelets Not Reportable Giant Platelets Not Reportable Platelet Satelliting Not Reportable Plt Morphology Comment Not Reportable RBC Morphology Not Reportable Dimorphic RBCs Not Reportable Polychromasia Not Reportable Hypochromasia Not Reportable Poikilocytosis Not Reportable Anisocytosis Not Reportable Microcytosis Not Reportable Macrocytosis Not Reportable Spherocytes Not Reportable Pappenheimer Bodies Not Reportable Sickle Cells Not Reportable Target Cells Not Reportable Tear Drop Cells Not Reportable Ovalocytes Not Reportable Helmet Cells Not Reportable Rodriguez-[place]wall Bodies Not Reportable [place] Rings Not Reportable [place] Cells Not Reportable Bite Cells Not Reportable Crenated Cell Not Reportable Elliptocytes Not Reportable Acanthocytes (Spur) Not Reportable Rouleaux Not Reportable Hemoglobin C Crystals Not Reportable Schistocytes Not Reportable Malaria parasites Not Reportable Richard Bodies Not Reportable Hem Pathologist Commnt No Sodium 132 L (137-145) mmol/L Potassium 3.6 (3.6-5.0) mmol/L Chloride 92.3 L (98-107) mmol/L Carbon Dioxide 28 (22-30) mmol/L Anion Gap 15 mmol/L BUN 58 H (7-17) mg/dL Creatinine 1.3 H (0.6-1.2) mg/dL Estimated GFR 41 ml/min BUN/Creatinine Ratio 45 % Glucose 269 H (65-100) mg/dL Calcium 9.6 (8.4-10.2) mg/dL Total Bilirubin 0.30 (0.1-1.2) mg/dL AST 13 (5-40) units/L ALT 18 (7-56) units/L Alkaline Phosphatase 127 (35-129) units/L Total Protein 7.9 (6.3-8.2) g/dL Albumin 4.5 (3.9-5) g/dL Albumin/Globulin Ratio 1.3 % Lipase 80 H (13-60) units/L - Radiology Data Radiology results: report reviewed - Medical Decision Making Discussed results with patient IV fluids and medications were given to the patient Critical care attestation.: If time is entered above; I have spent that time in minutes in the direct care of this critically ill patient, excluding procedure time. ED Disposition Clinical Impression: Abdominal pain, Nausea vomiting and diarrhea Disposition: HOME / SELF CARE / HOMELESS Is pt being admited?: No Does the pt Need Aspirin: No Condition: Stable Instructions: Nausea and Vomiting, Adult, Diarrhea, Adult, [id number], Abdominal Pain, Adult Additional Instructions: Return if worse Referrals: PRIMARY CARE, [Primary Care Provider] - 3-5 Days JAMAICA WILEY MD [Staff Physician] - 3-5 Days Time of Disposition: 23:20
== END 2022-03-20 00:16 | disposition home or self-care (01) ==
LOC: ED 16:05
DX: R10.31 Right lower quadrant pain (principal); R11.2 Nausea with vomiting, unspecified; R19.7 Diarrhea, unspecified; I10 Essential (primary) hypertension; E11.9 Type 2 diabetes mellitus without complications; R56.9 Unspecified convulsions; J44.1 Chronic obstructive pulmonary disease with (acute) exacerbation; Z90.49 Acquired absence of other specified parts of digestive tract; Z88.0 Allergy status to penicillin; Z88.1 Allergy status to other antibiotic agents; Z88.6 Allergy status to analgesic agent; Z91.09 Other allergy status, other than to drugs and biological substances; Z79.899 Other long term (current) drug therapy
CPT/HCPCS: 36415; 74177; 80053; 83690; 85007; 85025; 96361; 96374; 96375; 99284; J2270; J2405; J7030; Q9967

== ENCOUNTER 2022-03-24 05:29 | Emergency (ER) | payer MEDICARE ==
[2022-03-24 05:42] VITALS: BP 129/100
--- NOTE | 2022-03-24 07:31 | Emergency Department Report ---
ED General Adult HPI - General Chief complaint: Nausea/Vomiting/Diarrhea Stated complaint: FOLLOW-UP/LEG INFECTION PUI?: No Time Seen by Provider: 03/24/22 07:30 Source: patient Mode of arrival: Ambulatory Limitations: No Limitations - History of Present Illness Initial comments: Patient is a 62-year-old female that has been in the emergency room most of the night. I have seen her on triage exam this morning she is anxious and has numerous complaints. Primarily she is concerned for infection of her foot. She also reports vomiting. She reports stooling purulent drainage, to put nicely. Patient is restless and pacing in and out of the emergency room. I have asked her several times to remain in the waiting room for her name to be called. - Related Data Home Medications Medication Instructions Recorded Confirmed Last Taken Insulin Aspart (Nf) [NovoLOG See Protocol SUB-Q ACHS 07/01/19 07/01/19 Unknown Flexpen] LORazepam [Ativan] 0.5 mg PO BID 07/01/19 07/01/19 Unknown Previous Rx's Medication Instructions Recorded Last Taken Type Levothyroxine [Synthroid] 100 mcg PO QAM 14 Days #14 tab 09/19/19 Unknown Rx Lispro Insulin [HumaLOG] 10 unit SQ TIDAC 30 Days #1 bottle 09/19/19 Unknown Rx Metoprolol Mauro/Hydrochlorothiaz 1 each PO DAILY 14 Days #14 tab 09/19/19 Unknown Rx [Metoprolol ER-Hctz 25-12.5 mg] Potassium Chloride [K-Dur] 20 meq PO QDAY 14 Days #14 09/19/19 Unknown Rx carBAMazepine [Carbamazepine] 100 mg PO TID 14 Days #42 tab 09/19/19 Unknown Rx Ondansetron [Zofran Odt] 4 mg PO Q6HR PRN #20 tab.rapdis 01/04/20 Unknown Rx Ondansetron [Zofran Odt] 4 mg PO Q8HR PRN #10 tab.rapdis 12/25/20 Unknown Rx Promethazine [Phenergan TAB] 25 mg PO Q6HR PRN #20 tab 03/19/22 Unknown Rx Promethazine [Phenergan TAB] 25 mg PO Q6HR PRN #20 tab 03/19/22 Unknown Rx Sulfamethoxazole/Trimethoprim 1 each PO BID #14 03/19/22 Unknown Rx [Bactrim DS TAB] Allergies Allergy/AdvReac Type Severity Reaction Status Date / Time amoxicillin Allergy Unknown Verified 03/24/22 11:35 azithromycin [From Zithromax] Allergy Unknown Verified 03/24/22 11:35 clonazepam [From Klonopin] Allergy Unknown Verified 03/24/22 11:35 codeine Allergy Unknown Verified 03/24/22 11:35 morphine Allergy Unknown Verified 03/24/22 11:35 Penicillins Allergy Anaphylaxis Verified 03/24/22 11:35 risperidone [From Risperdal] Allergy Unknown Verified 03/24/22 11:35 Androgenic Anabolic Steroid AdvReac Unknown Verified 03/24/22 11:35 divalproex sodium AdvReac Unknown Verified 03/24/22 11:35 [From Depakote] NSAIDS (Non-Steroidal AdvReac Unknown Verified 03/24/22 11:35 Anti-Inflamma ED Review of Systems ROS: Stated complaint: FOLLOW-UP/LEG INFECTION Other details as noted in HPI Comment: All other systems reviewed and negative ED Past Medical Hx - Past Medical History Previous Medical History?: Yes Hx Hypertension: Yes (Metoprolol) Hx CVA: No Hx Heart Attack/AMI: No Hx Congestive Heart Failure: Yes Hx Diabetes: Yes (Novolog) Hx Renal Disease: No Hx Arthritis: No Hx Seizures: Yes (on tegretol) Hx Psychiatric Treatment: Yes Hx Asthma: No Hx COPD: Yes Hx Dementia: No Additional medical history: Kareem's Disease - Surgical History Past Surgical History?: Yes Hx Cholecystectomy: Yes Hx Appendectomy: No Additional Surgical History: 2000, knee - Family History Family history: no significant - Social History Smoking Status: Never Smoker Substance Use Type: None - Medications Home Medications: Home Medications Medication Instructions Recorded Confirmed Last Taken Type Insulin Aspart (Nf) [NovoLOG See Protocol SUB-Q ACHS 07/01/19 07/01/19 Unknown History Flexpen] LORazepam [Ativan] 0.5 mg PO BID 07/01/19 07/01/19 Unknown History Levothyroxine [Synthroid] 100 mcg PO QAM 14 Days #14 tab 09/19/19 Unknown Rx Lispro Insulin [HumaLOG] 10 unit SQ TIDAC 30 Days #1 bottle 09/19/19 Unknown Rx Metoprolol Mauro/Hydrochlorothiaz 1 each PO DAILY 14 Days #14 tab 09/19/19 Unknown Rx [Metoprolol ER-Hctz 25-12.5 mg] Potassium Chloride [K-Dur] 20 meq PO QDAY 14 Days #14 09/19/19 Unknown Rx carBAMazepine [Carbamazepine] 100 mg PO TID 14 Days #42 tab 09/19/19 Unknown Rx Ondansetron [Zofran Odt] 4 mg PO Q6HR PRN #20 tab.rapdis 01/04/20 Unknown Rx Ondansetron [Zofran Odt] 4 mg PO Q8HR PRN #10 tab.rapdis 12/25/20 Unknown Rx Promethazine [Phenergan TAB] 25 mg PO Q6HR PRN #20 tab 03/19/22 Unknown Rx Promethazine [Phenergan TAB] 25 mg PO Q6HR PRN #20 tab 03/19/22 Unknown Rx Sulfamethoxazole/Trimethoprim 1 each PO BID #14 03/19/22 Unknown Rx [Bactrim DS TAB] ED Physical Exam - General Limitations: No Limitations General appearance: alert, in no apparent distress - Head Head exam: Present: atraumatic, normocephalic - Eye Eye exam: Present: normal appearance - ENT ENT exam: Present: mucous membranes moist - Neck Neck exam: Present: normal inspection - Respiratory Respiratory exam: Present: normal lung sounds bilaterally. Absent: respiratory distress - Cardiovascular Cardiovascular Exam: Present: regular rate, normal rhythm. Absent: systolic murmur, diastolic murmur, rubs, gallop - GI/Abdominal GI/Abdominal exam: Present: soft, normal bowel sounds - Extremities Exam Extremities exam: Present: normal inspection - Back Exam Back exam: Present: normal inspection - Neurological Exam Neurological exam: Present: alert - Skin Skin exam: Present: warm, dry, intact, normal color. Absent: rash ED Course Vital Signs 03/24/22 05:38 Temperature 98.5 F Pulse Rate 108 H Respiratory 18 Rate Blood Pressure 129/100 [Left] O2 Sat by Pulse 97 Oximetry - Reevaluation(s) Reevaluation #1: 03/24/22 0730 No answer x3. Critical care attestation.: If time is entered above; I have spent that time in minutes in the direct care of this critically ill patient, excluding procedure time. ED Disposition Clinical Impression: Nausea vomiting and diarrhea Disposition: WITHOUT BEING SEEN Is pt being admited?: No Does the pt Need Aspirin: No Condition: Stable
== END 2022-03-24 10:20 | disposition left against medical advice (07) ==
LOC: ED 05:29
DX: R11.2 Nausea with vomiting, unspecified (principal); R19.7 Diarrhea, unspecified; I10 Essential (primary) hypertension; E11.9 Type 2 diabetes mellitus without complications; J44.9 Chronic obstructive pulmonary disease, unspecified; Z90.49 Acquired absence of other specified parts of digestive tract; Z98.890 Other specified postprocedural states; Z88.2 Allergy status to sulfonamides; Z88.8 Allergy status to other drugs, medicaments and biological substances; Z88.5 Allergy status to narcotic agent; Z88.0 Allergy status to penicillin; Z88.1 Allergy status to other antibiotic agents; Z79.899 Other long term (current) drug therapy; Z53.21 Procedure and treatment not carried out due to patient leaving prior to being seen by health care provider

== ENCOUNTER 2022-03-24 11:22 | Emergency (ER) | payer MEDICARE ==
[2022-03-24 11:35] VITALS: BP 141/93
--- NOTE | 2022-03-24 14:58 | Event Note ---
ED Screening Note ED Screening Note: 2nd visit of the day see prior h/p template [place] of state- see notes from nursing This initial assessment/diagnostic orders/clinical plan/treatment(s) is/are subject to change based on patients health status, clinical progression and re- assessment by fellow clinical providers in the ED. Further treatment and workup at subsequent clinical providers discretion. Patient/guardian urged not to elope from the ED as their condition may be serious if not clinically assessed and managed. Initial orders include: to main for eval
== END 2022-03-24 16:34 | disposition left against medical advice (07) ==
LOC: ED 11:22
DX: I96 Gangrene, not elsewhere classified (principal); Z53.21 Procedure and treatment not carried out due to patient leaving prior to being seen by health care provider